=== PATIENT | female | born 1960 | race Caucasian/White ===

== ENCOUNTER → 2016-05-12 | Outpatient (REF) | payer OTHER | LOC: M SFHCWAGY 15:38 | PROVIDERS: ATTEND Nurse Practitioner Women's Health | DX: Z12.4 Encounter for screening for malignant neoplasm of cervix (principal) ==

== ENCOUNTER → 2016-05-12 | Outpatient (REF) ==
--- NOTE | 2016-05-12 16:50 | REPMRS ---
Patient History The patient states she had a clinical breast exam in 05/12 Patient is postmenopausal. Family history of breast cancer in paternal grandmother and breast cancer in 2 maternal cousins at age 50 or over. Digital Woman Screen Mammo: May 12, 2016 - Exam #: [id number] Bilateral CC and MLO view(s) were taken. Technologist: Gogo Jordan, Technologist Prior study comparison: February 24, 2014, digital woman screen mammo performed at [facility]. November 26, 2012, digital woman screen mammo performed at [facility]. June 07, 2011, digital woman screen mammo performed at [facility]. FINDINGS: The breast tissue is almost entirely fat. There has been no change in the appearance of the mammogram from the prior studies. There is no interval development of dominant mass, architectural distortion, or clustered microcalcification typical of malignancy. ASSESSMENT: BI-RADS/ACR category 1 mammogram. Negative. Recommendation Routine screening mammogram of both breasts in 1 year (for women over age 40). This mammogram was interpreted with the aid of an FDA-approved computer-aided dectection system. Electronically Signed By: Smith Noel MD 05/12/16 [id number]
== END ==
LOC: M WHC 15:03
PROVIDERS: ATTEND Nurse Practitioner Women's Health
DX: Z12.31 Encounter for screening mammogram for malignant neoplasm of breast (principal)

== ENCOUNTER → 2016-07-20 | Outpatient (REF) ==
--- NOTE | 2016-07-20 14:51 | ECGEPIP ---
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 No change from 02/16/14 Electronically Signed On 07-20-2016 14:51:29 EDT by Berto Stevens
--- NOTE | 2016-07-21 10:00 | REP ---
CHEST X-RAY: Two views. 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 Comparison study February 16, 2014. FINDINGS: The lungs are symmetrically aerated and clear. The pleural angles are sharp. Heart is not enlarged. The aorta is tortuous. There are degenerative changes in the thoracic spine. IMPRESSION: No active disease. Signed by Carrillo Noel MD 07/21/2016 11:20 A
== END ==
LOC: M EKG 14:26
PROVIDERS: ATTEND Nurse Practitioner Women's Health
DX: Z02.89 Encounter for other administrative examinations (principal)

== ENCOUNTER → 2016-07-20 | Outpatient (REF) ==
[2016-07-20 09:37] LABS: MEAN CORPUSCULAR HEMOGLOBIN 34.8 pg (27.0-33.0); MEAN CORPUSCULAR HGB CONC 33.9 g/dl (32.0-36.5); MEAN CORPUSCULAR VOLUME 102.7 fl (80.0-96.0); WHITE BLOOD COUNT 6.4 K/mm3 (4.0-10.0)
[2016-07-20 09:58] LABS: ANION GAP 6 MEQ/L (8-16); BLOOD UREA NITROGEN 19 MG/DL (7-18); CALCIUM LEVEL 9.4 MG/DL (8.5-10.1); CARBON DIOXIDE LEVEL 29 MEQ/L (21-32); CHLORIDE LEVEL 103 MEQ/L (98-107); CHOLESTEROL LEVEL 235 MG/DL (<200); CREATININE FOR GFR 0.95 MG/DL (0.55-1.02); GLOMERULAR FILTRATION RATE > 60.0 (>51); GLUCOSE, FASTING 79 MG/DL (70-105); POTASSIUM SERUM 4.6 MEQ/L (3.5-5.1); SODIUM LEVEL 138 MEQ/L (136-145); TRIGLYCERIDES LEVEL 176 MG/DL (<150)
[2016-07-21 11:04] LABS: HEPATITIS B SURFACE ANTIBODY NEGATIVE (POSITIVE)
== END ==
LOC: M LAB 08:32
PROVIDERS: ATTEND Nurse Practitioner Women's Health
DX: Z02.89 Encounter for other administrative examinations (principal)

== ENCOUNTER → 2016-11-03 | Outpatient (CLI) | payer OTHER ==
[2016-11-03 10:12] LABS: FOLATE > 24.0 NG/ML; VITAMIN B12 LEVEL 680 PG/ML
== END ==
LOC: M LAB 09:04
PROVIDERS: ATTEND Family Medicine
DX: D64.9 Anemia, unspecified (principal)

== ENCOUNTER → 2017-03-23 | Outpatient (CLI) | payer OTHER ==
[2017-03-23 11:29] LABS: ALBUMIN 4.2 GM/DL (3.2-5.2); ALBUMIN/GLOBULIN RATIO 1.05 (1.00-1.93); ALKALINE PHOSPHATASE 66 U/L (45-117); ALT/SGPT 36 U/L (12-78); ANION GAP 9 MEQ/L (8-16); AST/SGOT 31 U/L (7-37); BILIRUBIN,TOTAL 0.6 MG/DL (0.2-1.0); BLOOD UREA NITROGEN 18 MG/DL (7-18); CALCIUM LEVEL 9.2 MG/DL (8.5-10.1); CARBON DIOXIDE LEVEL 27 MEQ/L (21-32); CHLORIDE LEVEL 97 MEQ/L (98-107); CHOLESTEROL LEVEL 201 MG/DL (<200); CHOLESTEROL RISK RATIO 1.951 (<5); CREATININE FOR GFR 1.04 MG/DL (0.55-1.02); GLOMERULAR FILTRATION RATE 58.4 (>51); GLUCOSE, FASTING 111 MG/DL (70-100); HDL CHOLESTEROL 103 MG/DL (>40); LDL CHOLESTEROL 78.2 MG/DL (<100); NON-HDL-C 98 MG/DL; POTASSIUM SERUM 4.7 MEQ/L (3.5-5.1); SODIUM LEVEL 133 MEQ/L (136-145); TOTAL PROTEIN 8.2 GM/DL (6.4-8.2); TRIGLYCERIDES LEVEL 99 MG/DL (<150)
[2017-03-23 11:34] LABS: TOTAL 25(OH) VITAMIN D 41.5 NG/ML (30.0-100.0)
== END ==
LOC: M LAB 10:31
DX: E55.9 Vitamin D deficiency, unspecified (principal); I10 Essential (primary) hypertension; E78.2 Mixed hyperlipidemia
CPT/HCPCS: 80053

== ENCOUNTER → 2017-08-02 | Outpatient (REF) | payer OTHER ==
[2017-08-07 14:16] LABS: HPV HYBRID CAPTURE II Negative (Negative)
== END ==
LOC: M SFHCWAGY 15:48
DX: Z01.419 Encounter for gynecological examination (general) (routine) without abnormal findings (principal); Z11.51 Encounter for screening for human papillomavirus (HPV)

== ENCOUNTER → 2017-09-12 | Outpatient (REF) | payer OTHER ==
[2017-09-12 11:10] LABS: BASO # 0.1 10^3/uL (0.0-0.2); BASO % 0.8 % (0.0-1.0); EOS # 0.2 10^3/uL (0.0-0.50); EOS % 2.7 % (0.0-3.0); HEMATOCRIT 35.4 % (36.0-47.0); HEMOGLOBIN 11.8 g/dl (12.0-15.5); LYMPH # 2.4 10^3/uL (1.5-4.5); MEAN CORPUSCULAR HEMOGLOBIN 33.8 pg (27.0-33.0); MEAN CORPUSCULAR HGB CONC 33.3 g/dl (32.0-36.5); MEAN CORPUSCULAR VOLUME 101.4 fl (80.0-96.0); MONO # 0.8 10^3/uL (0.0-0.8); MONO % 8.9 % (0.0-5.0); NEUTROPHILS # 5.2 10^3/uL (1.8-7.7); NEUTROPHILS % 59.6 % (36.0-66.0); PLATELET COUNT, AUTOMATED 338 10^3/uL (150-450); RED BLOOD COUNT 3.49 10^6/uL (4.00-5.40); RED CELL DISTRIBUTION WIDTH 12.1 % (11.5-14.5); WHITE BLOOD COUNT 8.7 10^3/uL (4.0-10.0)
[2017-09-12 11:25] LABS: FERRITIN 588 NG/ML (8-252); IRON (FE) 146 UG/DL (50-170); PERCENT SATURATION 54.1 % (13.2-45.0); TOTAL IRON BINDING CAPACITY 270 UG/DL (250-450)
[2017-09-12 11:30] LABS: VITAMIN B12 LEVEL 459 PG/ML
[2017-09-12 11:31] LABS: FOLATE 9.5 NG/ML
== END ==
LOC: M LAB REF 10:58
DX: D64.9 Anemia, unspecified (principal)

== ENCOUNTER → 2018-01-15 | Outpatient (REF) ==
[2018-01-15 09:29] LABS: HEMATOCRIT 36.3 % (36.0-47.0); HEMOGLOBIN 12.4 g/dl (12.0-15.5); MEAN CORPUSCULAR HEMOGLOBIN 33.8 pg (27.0-33.0); MEAN CORPUSCULAR HGB CONC 34.2 g/dl (32.0-36.5); MEAN CORPUSCULAR VOLUME 98.9 fl (80.0-96.0); PLATELET COUNT, AUTOMATED 362 10^3/uL (150-450); RED BLOOD COUNT 3.67 10^6/uL (4.00-5.40); RED CELL DISTRIBUTION WIDTH 11.9 % (11.5-14.5); WHITE BLOOD COUNT 8.9 10^3/uL (4.0-10.0)
[2018-01-15 09:34] LABS: APPEARANCE, URINE CLEAR (CLEAR); BACTERIA, URINE AUTO 1+ (NEGATIVE); BILIRUBIN, URINE AUTO NEGATIVE (NEGATIVE); BLOOD, URINE BLOOD NEGATIVE (NEGATIVE); COLOR, URINE STRAW (YELLOW); GLUCOSE, URINE (UA) AUTO NEGATIVE (NEGATIVE); KETONE, URINE AUTO NEGATIVE (NEGATIVE); LEUKOCYTE ESTERASE, URINE AUTO NEGATIVE (NEGATIVE); MUCUS, URINE SMALL (NEGATIVE); NITRITE, URINE AUTO NEGATIVE (NEGATIVE); PROTEIN, URINE AUTO NEGATIVE (NEGATIVE); RBC, URINE AUTO 1 /HPF (0-3); SPECIFIC GRAVITY URINE AUTO 1.005 (1.002-1.035); SQUAMOUS EPITHELIAL CELL UR AU 1 /HPF (0-6); UROBILINOGEN, URINE AUTO 0.2 mg/dL (0.0-2.0); WBC, URINE AUTO 1 /HPF (0-3)
[2018-01-15 10:08] LABS: ANION GAP 12 MEQ/L (8-16); BLOOD UREA NITROGEN 18 MG/DL (7-18); CALCIUM LEVEL 9.4 MG/DL (8.5-10.1); CARBON DIOXIDE LEVEL 24 MEQ/L (21-32); CHLORIDE LEVEL 98 MEQ/L (98-107); CHOLESTEROL LEVEL 231 MG/DL (<200); CHOLESTEROL RISK RATIO 2.357 (<5); CREATININE FOR GFR 0.98 MG/DL (0.55-1.30); GLOMERULAR FILTRATION RATE > 60.0 (>51); GLUCOSE, FASTING 85 MG/DL (70-100); HDL CHOLESTEROL 98 MG/DL (>40); LDL CHOLESTEROL 110 MG/DL (<100); NON-HDL-C 133 MG/DL; POTASSIUM SERUM 4.6 MEQ/L (3.5-5.1); SODIUM LEVEL 134 MEQ/L (136-145); TRIGLYCERIDES LEVEL 114 MG/DL (<150)
== END ==
LOC: M LAB 08:21
DX: Z00.00 Encounter for general adult medical examination without abnormal findings (principal)

== ENCOUNTER → 2018-01-16 | Outpatient (REF) | LOC: M EKG 14:11 | DX: Z02.9 Encounter for administrative examinations, unspecified (principal) ==

== ENCOUNTER → 2018-08-30 | Outpatient (CLI) | payer OTHER ==
[2018-08-30 11:33] LABS: BASO # 0.1 10^3/uL (0.0-0.2); BASO % 0.9 % (0.0-1.0); EOS # 0.3 10^3/uL (0.0-0.50); EOS % 2.8 % (0.0-3.0); HEMATOCRIT 38.2 % (36.0-47.0); LYMPH # 2.4 10^3/uL (1.5-4.5); LYMPH % 26.6 % (24.0-44.0); MEAN CORPUSCULAR HEMOGLOBIN 33.9 pg (27.0-33.0); MEAN CORPUSCULAR VOLUME 99.7 fl (80.0-96.0); MONO # 0.8 10^3/uL (0.0-0.8); MONO % 8.9 % (0.0-5.0); NEUTROPHILS # 5.4 10^3/uL (1.8-7.7); NEUTROPHILS % 60.1 % (36.0-66.0); PLATELET COUNT, AUTOMATED 315 10^3/uL (150-450); RED BLOOD COUNT 3.83 10^6/uL (4.00-5.40); WHITE BLOOD COUNT 8.9 10^3/uL (4.0-10.0)
[2018-08-30 12:56] LABS: BILIRUBIN,TOTAL 0.5 MG/DL (0.2-1.0); CALCIUM LEVEL 10.3 MG/DL (8.5-10.1); CHOLESTEROL RISK RATIO 2.302 (<5); CREATININE FOR GFR 1.24 MG/DL (0.55-1.30); GLOMERULAR FILTRATION RATE 47.5 (>51); TOTAL 25(OH) VITAMIN D 97.3 NG/ML (30.0-100.0); TOTAL PROTEIN 7.8 GM/DL (6.4-8.2)
== END ==
LOC: M LAB 11:02
PROVIDERS: ATTEND Family Medicine
DX: E78.2 Mixed hyperlipidemia (principal); E55.9 Vitamin D deficiency, unspecified; D64.9 Anemia, unspecified

== ENCOUNTER → 2018-12-19 | Outpatient (CLI) | payer OTHER ==
[2018-12-19 14:10] LABS: BLOOD UREA NITROGEN 21 MG/DL (7-18); CALCIUM LEVEL 10.1 MG/DL (8.5-10.1); CARBON DIOXIDE LEVEL 30 MEQ/L (21-32); CHLORIDE LEVEL 104 MEQ/L (98-107); CREATININE FOR GFR 0.97 MG/DL (0.55-1.30); GLOMERULAR FILTRATION RATE > 60.0 (>51); GLUCOSE, FASTING 117 MG/DL (70-100); POTASSIUM SERUM 4.5 MEQ/L (3.5-5.1); SODIUM LEVEL 139 MEQ/L (136-145)
== END ==
LOC: M LAB 13:02
PROVIDERS: ATTEND Family Medicine
DX: N17.8 Other acute kidney failure (principal)

== ENCOUNTER → 2019-03-05 | Outpatient (CLI) | payer OTHER ==
[2019-03-05 08:31] LABS: BASO # 0.1 10^3/uL (0.0-0.2); BASO % 1.1 % (0.0-1.0); EOS # 0.2 10^3/uL (0.0-0.5); EOS % 2.7 % (0.0-3.0); HEMATOCRIT 40.8 % (36.0-47.0); HEMOGLOBIN 13.1 g/dl (12.0-15.5); MEAN CORPUSCULAR HEMOGLOBIN 33.4 pg (27.0-33.0); MEAN CORPUSCULAR HGB CONC 32.1 g/dl (32.0-36.5); MEAN CORPUSCULAR VOLUME 104.1 fl (80.0-96.0); MONO # 0.8 10^3/uL (0.0-0.8); MONO % 12.7 % (0.0-5.0); NEUTROPHILS # 3.5 10^3/uL (1.5-8.5); NEUTROPHILS % 52.9 % (36.0-66.0); PLATELET COUNT, AUTOMATED 273 10^3/uL (150-450); RED BLOOD COUNT 3.92 10^6/uL (4.00-5.40); WHITE BLOOD COUNT 6.6 10^3/uL (4.0-10.0)
[2019-03-05 09:00] LABS: BILIRUBIN,TOTAL 0.4 MG/DL (0.2-1.0); CALCIUM LEVEL 9.8 MG/DL (8.5-10.1); CHOLESTEROL RISK RATIO 2.129 (<5); CREATININE FOR GFR 1.1 MG/DL (0.55-1.30); GLOMERULAR FILTRATION RATE 54.3 (>51); POTASSIUM SERUM 4.8 MEQ/L (3.5-5.1); TOTAL PROTEIN 7.9 GM/DL (6.4-8.2)
[2019-03-05 09:15] LABS: TOTAL 25(OH) VITAMIN D 69.6 NG/ML (30.0-100.0)
[2019-03-05 10:14] LABS: HEMOGLOBIN A1c 5.7 %
== END ==
LOC: M SDC 08:00
PROVIDERS: ATTEND Family Medicine
DX: I10 Essential (primary) hypertension (principal); E78.2 Mixed hyperlipidemia; E55.9 Vitamin D deficiency, unspecified; G43.009 Migraine without aura, not intractable, without status migrainosus

== ENCOUNTER → 2019-09-12 | Outpatient (CLI) | payer OTHER ==
[2019-09-12 13:21] LABS: APPEARANCE, URINE HAZY (CLEAR); BACTERIA, URINE AUTO NEGATIVE (NEGATIVE); BILIRUBIN, URINE AUTO NEGATIVE (NEGATIVE); BLOOD, URINE BLOOD NEGATIVE (NEGATIVE); COLOR, URINE YELLOW (YELLOW); GLUCOSE, URINE (UA) AUTO NEGATIVE (NEGATIVE); KETONE, URINE AUTO TRACE mg/dL (NEGATIVE); LEUKOCYTE ESTERASE, URINE AUTO 1+ (NEGATIVE); MUCUS, URINE SMALL (NEGATIVE); NITRITE, URINE AUTO NEGATIVE (NEGATIVE); PROTEIN, URINE AUTO NEGATIVE (NEGATIVE); RBC, URINE AUTO 4 /HPF (0-3); SPECIFIC GRAVITY URINE AUTO 1.021 (1.002-1.035); SQUAMOUS EPITHELIAL CELL UR AU 9 /HPF (0-6); UROBILINOGEN, URINE AUTO 0.2 mg/dL (0.0-2.0); WBC, URINE AUTO 10 /HPF (0-3)
[2019-09-12 13:24] LABS: BASO # 0.1 10^3/uL (0.0-0.2); BASO % 0.7 % (0.0-1.0); EOS # 0.2 10^3/uL (0.0-0.5); HEMATOCRIT 39.8 % (36.0-47.0); HEMOGLOBIN 13.2 g/dl (12.0-15.5); LYMPH # 2.1 10^3/uL (1.5-5.0); LYMPH % 24.2 % (24.0-44.0); MEAN CORPUSCULAR HEMOGLOBIN 34.5 pg (27.0-33.0); MEAN CORPUSCULAR HGB CONC 33.2 g/dl (32.0-36.5); MEAN CORPUSCULAR VOLUME 103.9 fl (80.0-96.0); MONO # 0.8 10^3/uL (0.0-0.8); MONO % 8.9 % (0.0-5.0); NEUTROPHILS # 5.5 10^3/uL (1.5-8.5); NEUTROPHILS % 63.5 % (36.0-66.0); PLATELET COUNT, AUTOMATED 283 10^3/uL (150-450); RED BLOOD COUNT 3.83 10^6/uL (4.00-5.40); WHITE BLOOD COUNT 8.6 10^3/uL (4.0-10.0)
[2019-09-12 13:59] LABS: ALBUMIN 4.2 GM/DL (3.2-5.2); CALCIUM LEVEL 9.7 MG/DL (8.5-10.1); CHOLESTEROL RISK RATIO 2.372 (<5); CREATININE FOR GFR 1.12 MG/DL (0.55-1.30); GLOMERULAR FILTRATION RATE 53.2 (>51); POTASSIUM SERUM 4.1 MEQ/L (3.5-5.1); TOTAL PROTEIN 8.4 GM/DL (6.4-8.2)
[2019-09-12 14:02] LABS: HEMOGLOBIN A1c 5.5 %
--- NOTE | 2019-09-12 16:08 | REP ---
REASON: Annual physicals. COMPARISON: 01/16/2018 FINDINGS: The superior mediastinal structures are midline. The cardiac silhouette is unremarkable in size, shape, and position. The diaphragmatic surfaces of the lungs are regular, and the costophrenic angles are clear. The pulmonary fuentes are clear. The imaged osseous structures are intact. IMPRESSION: There is no acute cardiopulmonary disease. No change. Electronically Signed by Daniel Weeks DO 09/12/2019 05:02 P
--- NOTE | 2019-09-12 17:07 | ECGEPIP ---
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 Electronically Signed on 09-12-2019 17:07:07 EDT by Floyd Anderson
== END ==
LOC: M LAB 12:24
PROVIDERS: ATTEND Family Medicine
DX: N18.3 Chronic kidney disease, stage 3 (moderate) (principal); E78.2 Mixed hyperlipidemia

== ENCOUNTER → 2019-12-03 | Outpatient (CLI) | payer OTHER ==
[2019-12-03 17:11] LABS: BASO # 0.1 10^3/uL (0.0-0.2); BASO % 0.8 % (0.0-1.0); EOS # 0.1 10^3/uL (0.0-0.5); HEMATOCRIT 36.8 % (36.0-47.0); HEMOGLOBIN 12.3 g/dl (12.0-15.5); LYMPH # 1.8 10^3/uL (1.5-5.0); LYMPH % 19.7 % (24.0-44.0); MEAN CORPUSCULAR HEMOGLOBIN 34.2 pg (27.0-33.0); MEAN CORPUSCULAR HGB CONC 33.4 g/dl (32.0-36.5); MEAN CORPUSCULAR VOLUME 102.2 fl (80.0-96.0); MONO # 0.7 10^3/uL (0.0-0.8); MONO % 7.1 % (0.0-5.0); NEUTROPHILS # 6.6 10^3/uL (1.5-8.5); NEUTROPHILS % 70.9 % (36.0-66.0); PLATELET COUNT, AUTOMATED 363 10^3/uL (150-450); WHITE BLOOD COUNT 9.3 10^3/uL (4.0-10.0)
[2019-12-03 17:25] LABS: ALBUMIN 3.5 GM/DL (3.2-5.2); ALT/SGPT 54 U/L (12-78); BILIRUBIN,TOTAL 0.4 MG/DL (0.2-1.0); BLOOD UREA NITROGEN 15 MG/DL (7-18); CARBON DIOXIDE LEVEL 27 MEQ/L (21-32); CHLORIDE LEVEL 102 MEQ/L (98-107); GLOMERULAR FILTRATION RATE > 60.0 (>51); GLUCOSE, FASTING 92 MG/DL (70-100); POTASSIUM SERUM 3.6 MEQ/L (3.5-5.1); SODIUM LEVEL 138 MEQ/L (136-145); TOTAL PROTEIN 7.5 GM/DL (6.4-8.2)
== END ==
LOC: M WUC 14:13
PROVIDERS: ATTEND Physician Assistant
DX: R53.81 Other malaise (principal)

== ENCOUNTER → 2020-05-30 | Outpatient (CLI) | payer OTHER ==
[2020-05-30 12:04] LABS: BASO # 0.1 10^3/uL (0.0-0.2); BASO % 1.1 % (0.0-1.0); EOS # 0.1 10^3/uL (0.0-0.5); EOS % 1.5 % (0.0-3.0); HEMATOCRIT 35.4 % (36.0-47.0); HEMOGLOBIN 11.8 g/dl (12.0-15.5); LYMPH # 1.7 10^3/uL (1.5-5.0); LYMPH % 23.1 % (24.0-44.0); MEAN CORPUSCULAR HEMOGLOBIN 35.4 pg (27.0-33.0); MEAN CORPUSCULAR HGB CONC 33.3 g/dl (32.0-36.5); MEAN CORPUSCULAR VOLUME 106.3 fl (80.0-96.0); MONO # 0.7 10^3/uL (0.0-0.8); MONO % 9.4 % (2.0-8.0); NEUTROPHILS # 4.7 10^3/uL (1.5-8.5); NEUTROPHILS % 64.1 % (36.0-66.0); PLATELET COUNT, AUTOMATED 274 10^3/uL (150-450); RED BLOOD COUNT 3.33 10^6/uL (4.00-5.40); WHITE BLOOD COUNT 7.3 10^3/uL (4.0-10.0)
[2020-05-30 12:39] LABS: ALBUMIN 3.8 GM/DL (3.2-5.2); BILIRUBIN,TOTAL 0.5 MG/DL (0.2-1.0); CALCIUM LEVEL 9.3 MG/DL (8.5-10.1); CHOLESTEROL RISK RATIO 1.675 (<5); CREATININE FOR GFR 1.13 MG/DL (0.55-1.30); FREE T4 0.76 NG/DL (0.76-1.46); GLOMERULAR FILTRATION RATE 52.5 (>51); POTASSIUM SERUM 4.3 MEQ/L (3.5-5.1); THYROID STIMULATING HORMONE 2.87 uIU/ML (0.358-3.740); TOTAL PROTEIN 7.6 GM/DL (6.4-8.2)
== END ==
LOC: M LAB 11:38
PROVIDERS: ATTEND Physician Assistant
DX: I10 Essential (primary) hypertension (principal); I12.9 Hypertensive chronic kidney disease with stage 1 through stage 4 chronic kidney disease, or unspecified chronic kidney disease

== ENCOUNTER 2020-08-29 20:06 | Inpatient (IN) | payer OTHER ==
[~2020-08-29] VITALS: Ht 167.6 cm; Wt 79.6 kg
[2020-08-29] MEDS ORDERED: NORT10CA2 PO (20:25)
[2020-08-29] MEDS ORDERED: ROSU5TAB5 PO (20:25)
[2020-08-29] MEDS ORDERED: LANS30CA93 PO (20:25)
[2020-08-29] MEDS ORDERED: ERGO500029 PO (20:25)
[2020-08-29] MEDS ORDERED: ONDA4TAB6 PO (20:25)
[2020-08-29] MEDS ORDERED: IRBE150T7 PO (20:25)
[2020-08-29] MEDS ORDERED: ALPR0.25 PO (20:25)
[2020-08-29] MEDS ORDERED: TIZA2TA PO (20:25)
[2020-08-29 21:14] LABS: BASO # 0.1 10^3/uL (0.0-0.2); BASO % 0.5 % (0.0-1.0); EOS % 0.2 % (0.0-3.0); HEMATOCRIT 32.2 % (36.0-47.0); HEMOGLOBIN 11.1 g/dl (12.0-15.5); LYMPH # 0.9 10^3/uL (1.5-5.0); LYMPH % 8.6 % (24.0-44.0); MEAN CORPUSCULAR HEMOGLOBIN 35.6 pg (27.0-33.0); MEAN CORPUSCULAR HGB CONC 34.5 g/dl (32.0-36.5); MEAN CORPUSCULAR VOLUME 103.2 fl (80.0-96.0); MONO # 0.9 10^3/uL (0.0-0.8); NEUTROPHILS # 8.2 10^3/uL (1.5-8.5); NEUTROPHILS % 79.7 % (36.0-66.0); PLATELET COUNT, AUTOMATED 249 10^3/uL (150-450); RED BLOOD COUNT 3.12 10^6/uL (4.00-5.40); WHITE BLOOD COUNT 10.2 10^3/uL (4.0-10.0)
[2020-08-29] MEDS ORDERED: NS 1,000 ML IV ONE (22:55)
[2020-08-29] MEDS ORDERED: ONDANSETRON 4MG/2ML VIAL IV ONE (23:10)
[2020-08-30 01:30] LABS: ALBUMIN 3.4 GM/DL (3.2-5.2); ALT/SGPT 45 U/L (12-78); BILIRUBIN,DIRECT 0.2 MG/DL (0.0-0.2); BILIRUBIN,TOTAL 0.7 MG/DL (0.2-1.0); CK-MB VALUE MASS < 1.0 NG/ML (<3.6); CPK CREATINE PHOSPHOKINASE 60 U/L (26-192); LIPASE 926 U/L (73-393); MB/CK RELATIVE INDEX 1.67 (< OR =4); TOTAL PROTEIN 6.7 GM/DL (6.4-8.2); TROPONIN I < 0.02 NG/ML (< 0.10)
[2020-08-30] MEDS ORDERED: ISOVUE-370 76% 100ML VIAL As Ordered ONE (01:37)
--- NOTE | 2020-08-30 02:35 | REPVR ---
PROCEDURE INFORMATION: Exam: CTA Chest With Contrast Exam date and time: 08/30/2020 1:53 AM Age: 59 years old Clinical indication: Other: Dizzy/lightheaded TECHNIQUE: Imaging protocol: Computed tomographic angiography of the chest with contrast. 3D rendering (Not supervised by radiologist): MIP and/or 3D reconstructed images were created by the technologist. Radiation optimization: All CT scans at this facility use at least one of these dose optimization techniques: automated exposure control; mA and/or kV adjustment per patient size (includes targeted exams where dose is matched to clinical indication); or iterative reconstruction. Contrast material: ISOVUE 370; Contrast volume: 100 ml; Contrast route: INTRAVENOUS (IV); COMPARISON: CR Chest, 2 view PA, Lat 09/12/2019 1:21 PM FINDINGS: Pulmonary arteries: Normal. No pulmonary emboli. Aorta: Atherosclerotic disease of the thoracic aorta. Lungs: Atelectasis or scarring the left base. Mild emphysema. Pleural spaces: Unremarkable. No pneumothorax. No pleural effusion. Heart: Atherosclerotic disease of the coronary arteries. Lymph nodes: Unremarkable. No enlarged lymph nodes. Bones/joints: Multilevel degenerative disease thoracic spine. Old healed fracture deformities of several right posterior ribs. Soft tissues: Unremarkable. IMPRESSION: No acute findings. Electronically signed by: Sundeep Torres On 08/30/2020 02:34:49 AM
--- NOTE | 2020-08-30 02:45 | REPVR ---
PROCEDURE INFORMATION: Exam: CT Abdomen And Pelvis With Contrast Exam date and time: 08/30/2020 1:53 AM Age: 59 years old Clinical indication: Other: Dizzy/lightheaded TECHNIQUE: Imaging protocol: Computed tomography of the abdomen and pelvis with contrast. Radiation optimization: All CT scans at this facility use at least one of these dose optimization techniques: automated exposure control; mA and/or kV adjustment per patient size (includes targeted exams where dose is matched to clinical indication); or iterative reconstruction. Contrast material: ISOVUE 370; Contrast volume: 100 ml; Contrast route: INTRAVENOUS (IV); COMPARISON: CR Chest, 2 view PA, Lat 09/12/2019 1:21 PM FINDINGS: Liver: Hepatomegaly and steatosis. Gallbladder and bile ducts: Normal. No calcified stones. No ductal dilation. Pancreas: Normal. No ductal dilation. Spleen: Normal. No splenomegaly. Adrenal glands: Normal. No mass. Kidneys and ureters: Nonspecific bilateral perinephric fat stranding. Small exophytic complex right renal cyst. Stomach and bowel: Diverticulosis of colon. No evidence of acute diverticulitis. Appendix: No evidence of appendicitis. Intraperitoneal space: Unremarkable. No free air. No significant fluid collection. Vasculature: Atherosclerotic disease of the abdominal aorta. Lymph nodes: Unremarkable. No enlarged lymph nodes. Urinary bladder: Unremarkable as visualized. Reproductive: Unremarkable as visualized. Bones/joints: Multilevel degenerative disease and facet arthropathy of the lumbar spine. Mild levoscoliosis. Soft tissues: Unremarkable. IMPRESSION: Hepatomegaly and steatosis. Diverticulosis of the colon. No evidence of acute diverticulitis. No bowel obstruction. Normal appendix. COMMENTS: Consistent with the [place] [employer]'s Incidental Findings Committee white paper (J Am Pan Radiol 2018): Any incidental renal lesion less than 1 cm or classified as too small to characterize, or any incidental cystic renal lesion characterized as simple-appearing, is likely benign. No follow-up imaging is recommended for these lesions per consensus recommendations based on imaging criteria. Electronically signed by: Sundeep Torres On 08/30/2020 02:45:45 AM
[2020-08-30] MEDS ORDERED: NS 1,000 ML IV ONE (02:55)
[2020-08-30 03:01] LABS: RSV AMPLIFICATION NEGATIVE (NEGATIVE)
--- NOTE | 2020-08-30 03:37 | REPVR ---
PROCEDURE INFORMATION: Exam: US Duplex Right Lower Extremity Veins, Limited Exam date and time: 08/30/2020 3:28 AM Age: 59 years old Clinical indication: Pain; Leg, upper; Right; Additional info: Pain right leg TECHNIQUE: Imaging protocol: Real-time Duplex ultrasound of the Right Lower Extremity with 2-D jalloh scale, color Doppler flow and spectral waveform analysis with image documentation. Limited exam was focused on the right lower extremity veins. COMPARISON: CT ABD/PEL W/IV CONTRAST ONLY 08/30/2020 1:37 AM FINDINGS: Right deep veins: Unremarkable. The common femoral, femoral, proximal profunda femoral and popliteal veins are patent without thrombus. Normal Doppler waveforms. Normal compressibility and/or augmentation response. Right superficial veins: Unremarkable. Saphenofemoral junction is patent without thrombus. Soft tissues: Unremarkable. IMPRESSION: No evidence of deep vein thrombosis. Electronically signed by: Sundeep Torres On 08/30/2020 03:36:31 AM
[2020-08-30] MEDS ORDERED: NS 1,000 ML IV SCH (04:15)
[2020-08-30] MEDS ORDERED: KCL 40MEQ in NS 1000ML 1,000 ML IV SCH (04:45)
[2020-08-30] MEDS: MORPHINE 2 MG/ML 1ML VIAL (J2270) IV PRN ×3 (06:40→19:43)
[2020-08-30] MEDS: ONDANSETRON 4MG/2ML VIAL IV PRN ×3 (06:40→19:42)
[2020-08-30 07:02] LABS: BASO % 0.5 % (0.0-1.0); EOS # 0.1 10^3/uL (0.0-0.5); EOS % 1.2 % (0.0-3.0); HEMATOCRIT 28.7 % (36.0-47.0); HEMOGLOBIN 9.9 g/dl (12.0-15.5); LYMPH # 1.6 10^3/uL (1.5-5.0); LYMPH % 18.7 % (24.0-44.0); MEAN CORPUSCULAR HEMOGLOBIN 35.6 pg (27.0-33.0); MEAN CORPUSCULAR HGB CONC 34.5 g/dl (32.0-36.5); MEAN CORPUSCULAR VOLUME 103.2 fl (80.0-96.0); MONO % 12.2 % (2.0-8.0); NEUTROPHILS # 5.5 10^3/uL (1.5-8.5); NEUTROPHILS % 66.2 % (36.0-66.0); PLATELET COUNT, AUTOMATED 210 10^3/uL (150-450); RED BLOOD COUNT 2.78 10^6/uL (4.00-5.40); WHITE BLOOD COUNT 8.3 10^3/uL (4.0-10.0)
[2020-08-30 07:28] LABS: ALBUMIN 3.1 GM/DL (3.2-5.2); ALT/SGPT 39 U/L (12-78); AMYLASE 61 U/L (25-115); BILIRUBIN,TOTAL 0.6 MG/DL (0.2-1.0); BLOOD UREA NITROGEN 26 MG/DL (7-18); CALCIUM LEVEL 7.8 MG/DL (8.5-10.1); CARBON DIOXIDE LEVEL 24 MEQ/L (21-32); CHLORIDE LEVEL 103 MEQ/L (98-107); CREATININE FOR GFR 0.85 MG/DL (0.55-1.30); GLOMERULAR FILTRATION RATE > 60.0 (>51); GLUCOSE, FASTING 71 MG/DL (70-100); IRON (FE) 92 UG/DL (50-170); LIPASE 741 U/L (73-393); PERCENT SATURATION 40.2 % (13.2-45.0); RHEUMATOID FACTOR QUANT < 10.0 IU/ML (<15.0); SODIUM LEVEL 139 MEQ/L (136-145); TOTAL IRON BINDING CAPACITY 229 UG/DL (250-450); TOTAL PROTEIN 6.1 GM/DL (6.4-8.2)
[2020-08-30 08:00] VITALS: BP 153/90
[2020-08-30] MEDS: PANTOPRAZOLE 40MG VIAL (C9113 PER 1) IV SCH (08:57)
--- NOTE | 2020-08-30 09:21 | HPE ---
HISTORY AND PHYSICAL DATE OF ADMISSION: 08/29/2020 CHIEF COMPLAINT: Weakness and lightheadedness. HISTORY OF PRESENT ILLNESS: This is a 59-year-old female who says that she has been out in the heat for three days. She has had nausea and vomiting. She continued to become more lightheaded and weak where she could even stand up. She came to the emergency room. On arrival, her temp was 97.9. Pulse was 98. Respirations were 20. Blood pressure was 154/80. Pulse oximetry was 98% on room air. Laboratory studies were drawn. White count was 10.2, hemoglobin 11.1, hematocrit of 32.2. MCV was 103.2. Platelets were 249. D-dimer was 1634.34. AST was 53. ALT was 45. Troponin was less than 0.02. Lipase was noted to be 926. Glucose was 87. Sodium was 138. Potassium was low at 3.2. Chloride was 96. Total CO2 was 23. BUN was elevated at 34. Creatinine was 1.1. Testing for COVID was negative. Radiology studies: Angiography CTA was done of the chest. No acute findings, no pulmonary edema. Vascular ultrasound of the legs was done, no evidence of deep vein thrombosis of the right leg. CT of the abdomen and pelvis was done with contrast. Impression was hepatomegaly and steatosis, diverticulosis of the colon. No evidence of acute diverticulitis. No bowel obstruction. Normal appendix. The patient received normal saline IV fluid bolus in the emergency room. She was given Zofran IV for nausea. Assessment was done and the patient will be admitted observation status for pancreatitis to the medical floor. She will be kept NPO and IV fluids. PRIMARY CARE PROVIDER: Briana Porras DO ALLERGIES: TETRACYCLINES, AZITHROMYCIN BASE. SOCIAL HISTORY: She is . She does not smoke cigarettes. She occasionally drinks alcohol. She does not use recreational drugs. FAMILY HISTORY: Reviewed and was noncontributory. PAST MEDICAL HISTORY: 1. Hypertension. 2. Hypercholesterolemia. 3. Migraines. 4. GERD. 5. Anxiety. 6. Vitamin D deficiency. 7. She has had continuous pain since February in her right hip. She has been unable to work. 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 PAST SURGICAL HISTORY: 1. Left hip replacement. 2. Right knee replacement. 3. x1. 4. She has had upper and lower scopes. HOME MEDICATIONS: 1. Alprazolam 0.25 mg p.o. daily p.r.n. anxiety. 2. Vitamin D 50,000 units p.o. q.2 weeks. 3. Irbesartan 150 mg p.o. daily. 4. Nortriptyline 100 mg p.o. daily. 5. Zofran 4 mg p.o. q.4 hours p.r.n. nausea and vomiting. 6. Rosuvastatin 12 mg p.o. daily. 7. Lansoprazole 30 mg p.o. daily. 8. Tizanidine 2 mg p.o. q.8 hours p.r.n. for muscle spasms. REVIEW OF SYSTEMS: No complaint of headaches. She does have a history of migraines, none currently. No blurred or double vision. No fever, no chills though she has felt warm and cold at times. No tinnitus, no hoarseness or difficulty swallowing. She has been lightheaded. She has felt weakness. Breasts: No masses. Cardiovascular: No complaints of chest pain, shortness of breath, palpitations or edema. Respiratory: No chronic cough. No sputum production. No hemoptysis, no orthopnea, no wheeze. GI: She has had nausea and vomiting. Denies diarrhea, hematochezia, melena, rectal bleeding or abdominal pain. She has just some tenderness. : No hematuria, dysuria, frequency. Musculoskeletal: No joint redness or swelling. She has had a complaint of right hip pain. Endocrine: No polyuria, polydipsia, polyphagia. Hematological: No easy bleeding or bruising. Neurological: She has a history of migraines. No paralysis. No history of seizures. Psychological: She has a history of anxiety, no depression or suicidal ideations. PHYSICAL EXAMINATION: GENERAL: 59-year-old female, height 66 inches, weight 79.6 kilograms. VITAL SIGNS: Blood pressure 127/85, pulse 100, respirations 18. The patient is alert and oriented x3. HEENT: Pupils equal and reactive to light. Tongue and gums are pink. Buccal mucosa is slightly dry. Tongue is midline. NECK: Supple without lymphadenopathy, no thyromegaly, no goiter. Carotids 2+ without bruit. CHEST: Clear to auscultation. No wheeze or retraction. HEART: Regular. ABDOMEN: Soft with mild generalized tenderness. No rebound or guarding. No masses, pusations or bruits. No organomegaly. Bowel sounds were positive. AND RECTAL: Not done. EXTREMITIES: No clubbing, cyanosis or edema. Peripheral pulses equal and palpable bilaterally. SKIN: Warm and dry. IMPRESSION AND PLAN: The patient will be admitted observation status to the hospitalist service. 1. Pancreatitis. We will give IV fluids 150 mL an hour. Monitor I&O. Keep NPO. Recheck lipase in the a.m. Protonix IV. 2. History of hypertension. Currently clinically stable. will monitor. 3. History of GERD. will currently give Protonix IV. 4. History of migraines. Currently clinically stable. 5. History of hypercholesterolemia.When taking by mouth. will resume rosuvastatin. 6. Vitamin D deficiency. When taking by mouth. will resume vitamin D supplement. 7. Right hip pain since February. Continued followup as an outpatient. She has an appointment with [facility] orthopedic group in [place]. 8. DVT prophylaxis. TEDs. ERWIN
--- NOTE | 2020-08-30 10:38 | IPNPDOC ---
Subjective Date Seen The patient was seen on 08/30/20. Subjective Chief Complaint/HPI Mrs. Cuadra is a 59 year old female with hypertension and chronic hip pain who had nausea, poor oral intake, and lightheadedness, and found to have pancreatitis. This morning, she denies abdominal pain, but still has nausea. She still does not have an appetite. She does have mild abdominal tenderness. Continue IVF and NPO Objective Physical Examination General Exam: Positive: Alert, Cooperative Eye Exam: Negative: Sclera icteric ENT Exam: Positive: Atraumatic Neck Exam: Positive: Supple Chest Exam: Positive: Clear to auscultation; Negative: Rales, Rhonchi, Wheezing Heart Exam: Positive: Rate Normal, Regular Rhythm Abdomen Exam: Positive: Normal bowel sounds, Soft, Tenderness Extremity Exam: Negative: Edema Neuro Exam: Positive: Normal Speech Psych Exam: Positive: Mental status NL, Mood NL Assessment /Plan Assessment Mrs. Cuadra is a 59 year old female here with pancreatitis. Unclear etiology. There is no signs of gallstones, and patient occasionally drinks alcohol. Will check a lipid panel. At this time, continue NPO and give IVF. No appetite at this time. Plan/VTE VTE Prophylaxis Ordered?: Yes Plan 1. Acute pancreatitis -Anorexia with nausea -Continue IVF and NPO -Pain control with IV morphine -Monitor for improvement of appetite 2. Hypertension -Blood pressure acceptable -Hold Irbesartan as NPO 3. GERD -Continue IV protonix 4. Migraines -No active migraines -Monitor 5. Hyperlipidemia -Hold rosuvastatin as NPO 6. DVT/ppx -TEDs Disposition: Pending improvement in appetite VS, I&O, 24H, Fishbone Vital Signs/I&O Vital Signs Date Time Temp Pulse Resp B/P (MAP) Pulse Ox O2 Delivery O2 Flow Rate FiO2 08/30/20 08:00 97.9 70 18 153/90 (111) 93 Room Air I&O- Last 24 Hours up to 6 AM 08/30/20 06:00 Intake Total 2000 ml Balance 2000 ml Laboratory Data 24H LABS Laboratory Tests 2 08/29/20 21:03: Immature Granulocyte % (Auto) 2.0, Neutrophils (%) (Auto) 79.7H, Lymphocytes (%) (Auto) 8.6L, Monocytes (%) (Auto) 9.0H, Eosinophils (%) (Auto) 0.2, Basophils (%) (Auto) 0.5, Neutrophils # (Auto) 8.2, Lymphocytes # (Auto) 0.9L, Monocytes # (Auto) 0.9H, Eosinophils # (Auto) 0.0, Basophils # (Auto) 0.1, Nucleated Red Blood Cells % (auto) 0.0 08/29/20 21:07: POC Glucose (Misc Panel) 87, POC Sodium (Misc Panel) 138, POC Potassium (Misc Panel) 3.2L, POC Chloride (Misc Panel) 96L, POC Total CO2 (Misc Panel) 23.0, POC Blood Urea Nitrogen (Misc Panel 34H, POC Ionized Calcium (Misc Panel) 4.4L, POC Creatinine (Misc Panel) 1.1, POC Hematocrit (Misc Panel) 35.0L 08/30/20 00:44: D-Dimer, Quantitative 1634.34H, Total Bilirubin 0.7, Direct Bilirubin 0.2, Aspartate Amino Transf (AST/SGOT) 53H, Alanine Aminotransferase (ALT/SGPT) 45, Alkaline Phosphatase 56, Total Creatine Kinase 60, Creatine Kinase MB < 1.0, Creatine Kinase MB Relative Index 1.67, Troponin I < 0.02, Total Protein 6.7, Albumin 3.4, Albumin/Globulin Ratio 1.0L, Lipase 926H 08/30/20 02:18: Coronavirus (COVID-19)(PCR) NEGATIVE, Influenza Type A (RT-PCR) NEGATIVE, Influenza Type B (RT-PCR) NEGATIVE, Respiratory Syncytial Virus (PCR) NEGATIVE 08/30/20 06:49: Immature Granulocyte % (Auto) 1.2, Neutrophils (%) (Auto) 66.2H, Lymphocytes (%) (Auto) 18.7L, Monocytes (%) (Auto) 12.2H, Eosinophils (%) (Auto) 1.2, Basophils (%) (Auto) 0.5, Neutrophils # (Auto) 5.5, Lymphocytes # (Auto) 1.6, Monocytes # (Auto) 1.0H, Eosinophils # (Auto) 0.1, Basophils # (Auto) 0.0, Nucleated Red Blood Cells % (auto) 0.0, D-Dimer, Quantitative 1203.11H, Anion Gap 12, Glomerular Filtration Rate > 60.0, Calcium Level 7.8L, Iron Level 92, Total Iron Binding Capacity 229L, Transferrin % Saturation 40.2, Total Bilirubin 0.6, Aspartate Amino Transf (AST/SGOT) 45H, Alanine Aminotransferase (ALT/SGPT) 39, Alkaline Phosphatase 49, Total Protein 6.1L, Albumin 3.1L, Albumin/Globulin Ratio 1.0L, Amylase Level 61, Lipase 741H, Rheumatoid Factor < 10.0 CBC/BMP Laboratory Tests 08/29/20 21:03 08/30/20 06:49 ROCIO LOPEZ DO Aug 30, 2020 10:38
[2020-08-30 11:33] LABS: VITAMIN B12 LEVEL 404 PG/ML (247-911)
[2020-08-30] MEDS: NS 1,000 ML IV SCH ×2 (12:17→18:21)
[2020-08-30 14:00] VITALS: BP 135/86
[2020-08-30 17:02] LABS: BLOOD UREA NITROGEN 22 MG/DL (7-18); CALCIUM LEVEL 7.8 MG/DL (8.5-10.1); CARBON DIOXIDE LEVEL 24 MEQ/L (21-32); CHLORIDE LEVEL 107 MEQ/L (98-107); CREATININE FOR GFR 0.81 MG/DL (0.55-1.30); GLOMERULAR FILTRATION RATE > 60.0 (>51); GLUCOSE, FASTING 76 MG/DL (70-100); SODIUM LEVEL 140 MEQ/L (136-145)
--- NOTE | 2020-08-30 18:53 | ECGEPIP ---
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
[2020-08-30 22:00] VITALS: BP 140/87
[2020-08-30] MEDS: METOCLOPRAMIDE INJ 10MG/2ML VIAL (J2765 PER 1) IV PRN (22:01)
[2020-08-31] MEDS: MORPHINE 2 MG/ML 1ML VIAL (J2270) IV PRN ×5 (00:32→18:41)
[2020-08-31] MEDS: NS 1,000 ML IV SCH ×4 (01:13→21:23)
[2020-08-31 02:33] VITALS: BP 138/74
[2020-08-31] MEDS: ONDANSETRON 4MG/2ML VIAL IV PRN ×2 (02:39→13:48)
[2020-08-31] MEDS: METOCLOPRAMIDE INJ 10MG/2ML VIAL (J2765 PER 1) IV PRN (04:32)
[2020-08-31 06:30] VITALS: BP 132/69
[2020-08-31 06:34] LABS: BASO # 0.1 10^3/uL (0.0-0.2); BASO % 0.7 % (0.0-1.0); EOS # 0.1 10^3/uL (0.0-0.5); EOS % 1.1 % (0.0-3.0); HEMATOCRIT 29.8 % (36.0-47.0); HEMOGLOBIN 9.7 g/dl (12.0-15.5); LYMPH # 1.2 10^3/uL (1.5-5.0); LYMPH % 13.1 % (24.0-44.0); MEAN CORPUSCULAR HGB CONC 32.6 g/dl (32.0-36.5); MEAN CORPUSCULAR VOLUME 107.6 fl (80.0-96.0); MONO % 10.5 % (2.0-8.0); NEUTROPHILS # 6.7 10^3/uL (1.5-8.5); NEUTROPHILS % 72.3 % (36.0-66.0); PLATELET COUNT, AUTOMATED 229 10^3/uL (150-450); RED BLOOD COUNT 2.77 10^6/uL (4.00-5.40); WHITE BLOOD COUNT 9.2 10^3/uL (4.0-10.0)
[2020-08-31 06:59] LABS: ALT/SGPT 48 U/L (12-78); BILIRUBIN,TOTAL 0.6 MG/DL (0.2-1.0); BLOOD UREA NITROGEN 17 MG/DL (7-18); CALCIUM LEVEL 7.5 MG/DL (8.5-10.1); CARBON DIOXIDE LEVEL 22 MEQ/L (21-32); CHLORIDE LEVEL 108 MEQ/L (98-107); CHOLESTEROL LEVEL 160 MG/DL (<200); CHOLESTEROL RISK RATIO 1.839 (<5); CREATININE FOR GFR 0.75 MG/DL (0.55-1.30); GLOMERULAR FILTRATION RATE > 60.0 (>51); GLUCOSE, FASTING 66 MG/DL (70-100); HDL CHOLESTEROL 87 MG/DL (>40); LDL CHOLESTEROL 55 MG/DL (<100); LIPASE 818 U/L (73-393); NON-HDL-C 73 MG/DL; POTASSIUM SERUM 2.8 MEQ/L (3.5-5.1); SODIUM LEVEL 141 MEQ/L (136-145); TOTAL PROTEIN 6.5 GM/DL (6.4-8.2); TRIGLYCERIDES LEVEL 88 MG/DL (<150)
[2020-08-31] MEDS ORDERED: POTASSIUM CHLORIDE 10 MEQ SR TABLET PO ONE (07:00)
[2020-08-31] MEDS ORDERED: KCL 10MEQ/100ML SWI (KRUN) 10 MEQ in IV 1 EA IV ONE (07:00)
[2020-08-31] MEDS ORDERED: POTASSIUM CHLORIDE INJ 20 MEQ in NS 1,000 ML IV SCH (07:20)
[2020-08-31] MEDS ORDERED: POTASSIUM CHLORIDE 10% LIQ 20 MEQ/15 ML UDC PO ONE (07:20)
[2020-08-31] MEDS: KCL 10MEQ/100ML SWI (KRUN) 10 MEQ in IV 1 EA IV SCH ×4 (08:18→12:10)
[2020-08-31] MEDS: PANTOPRAZOLE 40MG VIAL (C9113 PER 1) IV SCH (08:19)
[2020-08-31 10:06] LABS: MAGNESIUM LEVEL 0.5 MG/DL (1.8-2.4)
[2020-08-31] MEDS: MAG SULF 1GM/100ML (MAG RUN) 1 GM in IV 1 EA IV SCH ×4 (10:56→13:48)
--- NOTE | 2020-08-31 12:05 | IPNPDOC ---
Subjective Date Seen The patient was seen on 08/31/20. Subjective Chief Complaint/HPI Mrs. Cuadra is a 59 year old female with hypertension and chronic hip pain who had nausea, poor oral intake, and lightheadedness, and found to have pancreatitis. This morning, she has worsening nausea. Her low potassium and magnesium will be supplemented Objective Physical Examination General Exam: Positive: Alert, Cooperative Eye Exam: Negative: Sclera icteric ENT Exam: Positive: Atraumatic Neck Exam: Positive: Supple Chest Exam: Positive: Clear to auscultation; Negative: Rales, Rhonchi, Wheezing Heart Exam: Positive: Rate Normal, Regular Rhythm Abdomen Exam: Positive: Normal bowel sounds, Soft, Tenderness Extremity Exam: Negative: Edema Neuro Exam: Positive: Normal Speech Psych Exam: Positive: Mental status NL, Mood NL Assessment /Plan Assessment Mrs. Cuadra is a 59 year old female here with pancreatitis. Unclear etiology. There is no signs of gallstones, and patient occasionally drinks alcohol. Will check a lipid panel. At this time, continue NPO and give IVF. No appetite at this time. Plan/VTE VTE Prophylaxis Ordered?: Yes Plan 1. Acute pancreatitis -Anorexia with nausea -Continue IVF and NPO -Pain control with IV morphine -Monitor for improvement of appetite 2. Hypertension -Blood pressure acceptable -Hold Irbesartan as NPO 3. GERD -Continue IV protonix 4. Migraines -No active migraines -Monitor 5. Hyperlipidemia -Hold rosuvastatin as NPO 6. Low potassium and magnesium -Will be supplemented and rechecked 7. DVT/ppx -TEDs Disposition: Pending improvement in appetite VS, I&O, 24H, Fishbone Vital Signs/I&O Vital Signs Date Time Temp Pulse Resp B/P (MAP) Pulse Ox O2 Delivery O2 Flow Rate FiO2 08/31/20 08:19 18 08/31/20 06:30 97.9 68 132/69 (90) 98 Room Air I&O- Last 24 Hours up to 6 AM 08/31/20 06:00 Intake Total 2596 ml Output Total 2550 ml Balance 46 ml Laboratory Data 24H LABS Laboratory Tests 2 08/30/20 16:25: Anion Gap 9, Glomerular Filtration Rate > 60.0, Calcium Level 7.8L 08/31/20 05:54: Anion Gap 11, Glomerular Filtration Rate > 60.0, Calcium Level 7.5L, Immature Granulocyte % (Auto) 2.3, Neutrophils (%) (Auto) 72.3H, Lymphocytes (%) (Auto) 13.1L, Monocytes (%) (Auto) 10.5H, Eosinophils (%) (Auto) 1.1, Basophils (%) (Auto) 0.7, Neutrophils # (Auto) 6.7, Lymphocytes # (Auto) 1.2L, Monocytes # (Auto) 1.0H, Eosinophils # (Auto) 0.1, Basophils # (Auto) 0.1, Nucleated Red Blood Cells % (auto) 0.0, Magnesium Level 0.5*L, Total Bilirubin 0.6, Aspartate Amino Transf (AST/SGOT) 58H, Alanine Aminotransferase (ALT/SGPT) 48, Alkaline Phosphatase 54, Total Protein 6.5, Albumin 3.0L, Albumin/Globulin Ratio 0.9L, Triglycerides Level 88, Total Cholesterol 160, LDL Cholesterol 55, Non-HDL Cholesterol (LDL + VLDL) 73, Total HDL Cholesterol 87, Cholesterol/HDL Ratio 1.839, Lipase 818H CBC/BMP Laboratory Tests 08/30/20 16:25 08/31/20 05:54 ROCIO LOPEZ DO Aug 31, 2020 12:05
[2020-08-31 14:00] VITALS: BP 121/75
[2020-08-31 16:42] LABS: BLOOD UREA NITROGEN 14 MG/DL (7-18); CALCIUM LEVEL 7.6 MG/DL (8.5-10.1); CARBON DIOXIDE LEVEL 20 MEQ/L (21-32); CHLORIDE LEVEL 107 MEQ/L (98-107); CREATININE FOR GFR 0.65 MG/DL (0.55-1.30); GLOMERULAR FILTRATION RATE > 60.0 (>51); GLUCOSE, FASTING 88 MG/DL (70-100); POTASSIUM SERUM 4.1 MEQ/L (3.5-5.1); SODIUM LEVEL 139 MEQ/L (136-145)
[2020-08-31 20:31] LABS: MAGNESIUM LEVEL 1.9 MG/DL (1.8-2.4)
[2020-08-31] MEDS ORDERED: ALPRAZolam 0.25 MG TAB PO PRN (21:15)
[2020-08-31] MEDS: tiZANidine 4 MG TAB PO PRN (21:23)
[2020-08-31 22:00] VITALS: BP 137/90
[2020-09-01] MEDS: MORPHINE 2 MG/ML 1ML VIAL (J2270) IV PRN ×4 (00:06→18:02)
[2020-09-01 06:21] LABS: BASO # 0.1 10^3/uL (0.0-0.2); BASO % 0.5 % (0.0-1.0); EOS # 0.1 10^3/uL (0.0-0.5); HEMATOCRIT 29.6 % (36.0-47.0); HEMOGLOBIN 9.6 g/dl (12.0-15.5); LYMPH # 1.2 10^3/uL (1.5-5.0); MEAN CORPUSCULAR HEMOGLOBIN 35.4 pg (27.0-33.0); MEAN CORPUSCULAR HGB CONC 32.4 g/dl (32.0-36.5); MEAN CORPUSCULAR VOLUME 109.2 fl (80.0-96.0); MONO # 1.1 10^3/uL (0.0-0.8); MONO % 9.8 % (2.0-8.0); NEUTROPHILS # 8.5 10^3/uL (1.5-8.5); NEUTROPHILS % 75.9 % (36.0-66.0); PLATELET COUNT, AUTOMATED 213 10^3/uL (150-450); RED BLOOD COUNT 2.71 10^6/uL (4.00-5.40); WHITE BLOOD COUNT 11.1 10^3/uL (4.0-10.0)
[2020-09-01 06:30] VITALS: BP 136/88
[2020-09-01] MEDS: NS 1,000 ML IV SCH ×3 (06:33→18:01)
[2020-09-01 06:49] LABS: ALBUMIN 2.5 GM/DL (3.2-5.2); ALT/SGPT 54 U/L (12-78); BILIRUBIN,TOTAL 0.6 MG/DL (0.2-1.0); BLOOD UREA NITROGEN 10 MG/DL (7-18); CALCIUM LEVEL 7.3 MG/DL (8.5-10.1); CARBON DIOXIDE LEVEL 20 MEQ/L (21-32); CHLORIDE LEVEL 109 MEQ/L (98-107); CREATININE FOR GFR 0.61 MG/DL (0.55-1.30); GLOMERULAR FILTRATION RATE > 60.0 (>51); GLUCOSE, FASTING 64 MG/DL (70-100); LIPASE 409 U/L (73-393); POTASSIUM SERUM 3.3 MEQ/L (3.5-5.1); SODIUM LEVEL 142 MEQ/L (136-145); TOTAL PROTEIN 6.4 GM/DL (6.4-8.2)
[2020-09-01] MEDS ORDERED: POTASSIUM CHLORIDE 10% LIQ 20 MEQ/15 ML UDC PO ONE (07:20)
[2020-09-01] MEDS ORDERED: POTASSIUM CHLORIDE 10 MEQ SR TABLET PO ONE (08:00)
[2020-09-01] MEDS: PANTOPRAZOLE 40MG VIAL (C9113 PER 1) IV SCH (08:25)
[2020-09-01] MEDS: tiZANidine 4 MG TAB PO PRN (08:25)
[2020-09-01 08:28] LABS: MAGNESIUM LEVEL 1.3 MG/DL (1.8-2.4)
[2020-09-01] MEDS ORDERED: MAG SULF 1GM/100ML (MAG RUN) 1 GM in IV 1 EA IV ONE (09:00)
[2020-09-01 10:00] VITALS: BP 115/78
[2020-09-01] MEDS: ONDANSETRON 4MG/2ML VIAL IV PRN ×2 (12:31→18:02)
--- NOTE | 2020-09-01 12:57 | IPNPDOC ---
Text Note Date of Service The patient was seen on 09/01/20. NOTE Subjective: Patient is a 59-year-old female with chronic hip pain who presents with nausea and poor oral intake who was found to have pancreatitis. Patient states that this morning her nausea has improved. Patient denies any abdominal pain. Patient did have some low potassium and magnesium which was supplemented again today. Patient was complaining of some left leg pain saying that he felt stiff and she was having some difficulty moving it. Patient said she had soreness in her thigh. Review of systems: General: Patient denies fevers HEENT: Patient denies headaches Cardiovascular: Patient denies chest pain Respiratory: Patient denies shortness of breath, cough GI: Patient denies abdominal pain, nausea, vomiting, diarrhea : Patient denies increased frequency or pain with urination Extremities: Patient reported pain in her hips bilaterally. Neurological: Patient denies numbness or tingling in legs Physical exam: Vitals: See below General: Alert and oriented female patientlaying in the bed when I walked in the room. Patient did not appear to be in any acute distress. HEENT: Normocephalic, atraumatic, moist mucous membranes. Neck: No lymphadenopathy or thyromegaly Cardiac: Regular rate and rhythm, no murmurs, normal S1, normal S2 Pulm: Clear to auscultation bilaterally. No wheezes, rhonchi, rales Abd: Nondistended, nontender to palpation, normal bowel sounds Ext: No edema bilateral lower extremities Musculoskeletal: Patient was able to move her leg bilaterally however, she did have some pain with flexion of the left hip and knee. There was no acute swelling, redness, or heat coming from the leg. Patient was able to move the leg with passive range of motion. Labs: See below Imaging: No new imaging has been performed since 08/30/2020. Assessment/plan: Patient is a 59-year-old female who presented to the hospital with pancreatitis who is slowly improving. 1. Acute pancreatitis, unknown etiology. In speaking with the patient today, she does say she does drink alcohol but does not report excessive alcohol use. Patient is saying that her nausea has improved and she does have an appetite. We will advance diet as tolerated starting with clear liquids. If this goes well, patient can be advanced to eating a low-fat diet either at lunch or dinner. Patient can have her IV fluids discontinued once her p.o. intake is able to maintain her hydration status. 2. Hypertension. We will continue to monitor the patient's blood pressure. Patient's blood pressure has been within normal limits and will continue to hold her blood pressure medications. 3. GERD. We will continue IV Protonix. 4. Migraines. No active migraines at this time we will continue to monitor. 5. Hyperlipidemia. Once the patient is able to take medications, we will continue with the rosuvastatin. 6. Hypokalemia and hypomagnesemia. These were still low today we will supplement again and recheck in the morning. DVT Prophylaxis: Teds Disposition: Pending improvement in the patient's diet. If the patient is able to tolerate p.o. intake and is doing well, patient may be able to be discharged in the next 24 to 48 hours. VS,Fishbone, I+O VS, Fishbone, I+O Laboratory Tests 08/31/20 16:00 09/01/20 05:57 Vital Signs Date Time Temp Pulse Resp B/P (MAP) Pulse Ox O2 Delivery O2 Flow Rate FiO2 09/01/20 12:32 18 09/01/20 10:00 97.5 77 115/78 (90) 97 Room Air I&O- Last 24 Hours up to 6 AM 09/01/20 06:00 Intake Total 2500 ml Output Total 1700 ml Balance 800 ml MAXI ANDERSON DO Sep 01, 2020 12:57
[2020-09-01 14:00] VITALS: BP 118/78
[2020-09-01 18:00] VITALS: BP 148/84
[2020-09-01 22:00] VITALS: BP 110/83
[2020-09-02] MEDS: tiZANidine 4 MG TAB PO PRN (00:57)
[2020-09-02] MEDS: ONDANSETRON 4MG/2ML VIAL IV PRN (00:57)
[2020-09-02] MEDS: MORPHINE 2 MG/ML 1ML VIAL (J2270) IV PRN (00:58)
[2020-09-02 02:00] VITALS: BP 131/98
[2020-09-02] MEDS ORDERED: LORazepam 2 MG TAB PO PRN (02:25)
[2020-09-02 02:30] VITALS: BP_SYST 130; BP_SYST 131; BP_DIAS 98
[2020-09-02] MEDS ORDERED: OXAZEPAM 10 MG CAP PO ONE (02:30)
[2020-09-02 05:30] VITALS: BP 138/90
[2020-09-02 05:58] VITALS: BP 138/90
[2020-09-02 07:18] LABS: HEMATOCRIT 27.4 % (36.0-47.0); HEMOGLOBIN 9.1 g/dl (12.0-15.5); MEAN CORPUSCULAR HEMOGLOBIN 35.8 pg (27.0-33.0); MEAN CORPUSCULAR HGB CONC 33.2 g/dl (32.0-36.5); MEAN CORPUSCULAR VOLUME 107.9 fl (80.0-96.0); PLATELET COUNT, AUTOMATED 219 10^3/uL (150-450); RED BLOOD COUNT 2.54 10^6/uL (4.00-5.40); WHITE BLOOD COUNT 12.4 10^3/uL (4.0-10.0)
[2020-09-02 07:46] LABS: ALBUMIN 2.3 GM/DL (3.2-5.2); ALT/SGPT 50 U/L (12-78); BILIRUBIN,TOTAL 0.5 MG/DL (0.2-1.0); BLOOD UREA NITROGEN 10 MG/DL (7-18); CALCIUM LEVEL 6.9 MG/DL (8.5-10.1); CARBON DIOXIDE LEVEL 23 MEQ/L (21-32); CHLORIDE LEVEL 107 MEQ/L (98-107); GLOMERULAR FILTRATION RATE > 60.0 (>51); GLUCOSE, FASTING 83 MG/DL (70-100); LIPASE 367 U/L (73-393); POTASSIUM SERUM 3.6 MEQ/L (3.5-5.1); SODIUM LEVEL 138 MEQ/L (136-145); TOTAL PROTEIN 5.4 GM/DL (6.4-8.2)
[2020-09-02 08:11] LABS: EOSINOPHILS 1 % (0-3); LYMPHOCYTES 16 % (16-44); METAMYELOCYTES 1 % (0-0); NEUTROPHILS 82 % (28-66); PLATELET ESTIMATE NORMAL (NORMAL)
[2020-09-02] MEDS: PANTOPRAZOLE 40MG VIAL (C9113 PER 1) IV SCH (08:47)
[2020-09-02] MEDS ORDERED: FOLIC ACID 1 MG TAB PO SCH (09:00)
[2020-09-02] MEDS ORDERED: MULTIVITAMINS/MINERALS THERAP 1 TAB PO SCH (09:00)
[2020-09-02] MEDS ORDERED: THIAMINE 100 MG TAB PO SCH (09:00)
--- NOTE | 2020-09-02 11:40 | DS.PDOC ---
Discharge Summary General Date of Admission Aug 31, 2020 at 09:39 Date of Discharge 09/02/2020 Primary Care Physician: SAJAN ORNELAS DO Attending Physician: MAXI ANDERSON DO Discharge Summary PROCEDURES PERFORMED DURING STAY: None. ADMITTING DIAGNOSES: 1. Pancreatitis 2. History of hypertension 3. History of GERD 4. History of migraines 5. History of hypercholesterolemia 6. Vitamin D deficiency 7. Right hip pain DISCHARGE DIAGNOSES: 1. Pancreatitis 2. Alcohol withdrawal 3. History of hypertension 4. History of GERD 5. History of migraines 6. History of hypercholesterolemia 7. Vitamin D deficiency 8. Right hip pain COMPLICATIONS/CHIEF COMPLAINT: Pancreatitis. HISTORY OF PRESENT ILLNESS: Patient is a 59-year-old female who presented to the hospital with nausea and vomiting. Patient said that she began to have nausea and vomiting over the past 3 days. Patient said she was very lightheaded and weak to the point where she could barely stand up. Patient came to the emergency room on 08/29/2020. Patient was diagnosed with pancreatitis based on the nausea vomiting and the elevated lipase at 926. Patient also had hypokalemia which was repleted. Patient was admitted to the hospital n.p.o. and was given IV fluids. HOSPITAL COURSE: Patient continued to have nausea and vomiting throughout the first few days of her hospital course. Patient did improve on 09/01/2020 and her diet was advanced. Patient began on a clear liquid diet and was quickly advanced to a full diet which patient did well on. Patient says that nausea, vo miting, and any abdominal pain had improved. Patient was still dealing with her right hip pain which has been chronic and she is getting worked up outpatient. Overnight on 09/01/2020 patient became confused and agitated. Patient did admit to drinking heavily. Patient initially admitted to drinking a few hard seltzers however, on further questioning this morning, 09/02/2020, patient did admit to dr giordanoing bottles of tequila. Patient states that she purchases 375 mL bottles of tequila which last for about 2 days. Patient says that she has been going through some difficult times at home which is caused her to drink more. Patient was given 20 mg of oxazepam and 2 mg of Ativan overnight which made the patient very somnolent. Patient did wake up and was agitated this morning. Patient did appear in withdrawal with tremors, sweating, and agitation. Patient was going to be given Serax 10 mg every 8 hours however, the patient became upset and wanted to go home. I strongly advised the patient that she stay in the hospital in order to get on a good regimen to help her through her alcohol withdrawals however, the patient decided to leave AGAINST MEDICAL ADVICE. Patient verbalized understanding that this decision leaves her at risk for worsening of her alcohol withdrawal symptoms which could include but is not limited to seizures and/or . Patient left the hospital on 09/02/2020 AGAINST MEDICAL ADVICE. Patient signed the AGAINST MEDICAL ADVICE form and left the hospital. DISCHARGE MEDICATIONS: Please see below. ALLERGIES: Please see below. PHYSICAL EXAMINATION ON DISCHARGE: VITAL SIGNS: Please see below. General: Alert and oriented female who was sitting on the bed when I walked in. Patient was calm initially but then became slightly agitated while speaking with her stating that I do not believe she is ready for discharge. Patient was tremulous and did appear sweaty. HEENT: Normocephalic, atraumatic, moist mucous membranes. Neck: No lymphadenopathy or thyromegaly Cardiac: Regular rate and rhythm, no murmurs, normal S1, normal S2 Pulm: Clear to auscultation bilaterally. No wheezes, rhonchi, rales Abd: Nondistended, nontender to palpation, normal bowel sounds Ext: No edema bilateral lower extremities LABORATORY DATA: Please see below. IMAGING: CT of the abdomen and pelvis with IV contrast performed on 08/30/2020 was reported to show hepatomegaly and steatosis, diverticulosis of the colon, no evidence of acute diverticulitis, no bowel obstruction and normal appendix. CT angiography of the chest performed on 08/30/2020 was reported to show no acute findings. Duplex ultrasound of the right lower extremity veins performed on 08/30/2020 was reported to show no evidence of deep vein thrombosis PROGNOSIS: Fair ACTIVITY: As tolerated. DIET: Low-fat diet DISCHARGE PLAN: Discharge home AGAINST MEDICAL ADVICE DISPOSITION: Against Medical Advice. DISCHARGE INSTRUCTIONS: 1. Follow-up with your primary care provider within 5 to 7 days of discharge. 2. Abstain from alcohol and return to the emergency department if symptoms return or worsen ITEMS TO FOLLOWUP ON ON OUTPATIENT: 1. Monitor the patient for alcohol withdrawal. DISCHARGE CONDITION: Unstable TIME SPENT ON DISCHARGE: Less than 30 minutes. Vital Signs/I&Os Vital Signs Date Time Temp Pulse Resp B/P (MAP) Pulse Ox O2 Delivery O2 Flow Rate FiO2 09/02/20 05:58 84 138/90 09/02/20 05:30 97.0 18 92 Room Air I&O- Last 24 Hours up to 6 AM 09/02/20 06:00 Intake Total 3340 ml Output Total 1050 ml Balance 2290 ml Laboratory Data Labs 24H Laboratory Tests 2 09/02/20 06:58: Neutrophils (%) (Auto) , Nucleated Red Blood Cells % (auto) 0.0, Neutrophils 82H, Lymphocytes (Manual) 16, Eosinophils (Manual) 1, Metamyelocytes 1H, Red Blood Cell Morphology NORMAL, Platelet Estimate NORMAL, Anion Gap 8, Glomerular Filtration Rate > 60.0, Calcium Level 6.9L, Total Bilirubin 0.5, Aspartate Amino Transf (AST/SGOT) 71H, Alanine Aminotransferase (ALT/SGPT) 50, Alkaline Phosphatase 103, Total Protein 5.4L, Albumin 2.3L, Albumin/Globulin Ratio 0.7L, Lipase 367 CBC/BMP Laboratory Tests 09/02/20 06:58 Discharge Medications Scheduled Ergocalciferol (Vitamin D2) (Vitamin D2) 50,000 Units Cap, 50,000 UNITS PO Q2WK, (Reported) sunday Irbesartan (Irbesartan) 150 Mg Tablet, 150 MG PO DAILY, (Reported) Lansoprazole (Lansoprazole) 30 Mg Capsule.dr, 30 MG PO DAILY, (Reported) Nortriptyline HCl (Nortriptyline HCl) 10 Mg Capsule, 20 MG PO DAILY, (Reported) Rosuvastatin Calcium (Rosuvastatin Calcium) 5 Mg Tablet, 5 MG PO DAILY, (Reported) Scheduled PRN Alprazolam (Alprazolam) 0.25 Mg Tablet, 0.25 MG PO DAILY PRN for ANXIETY, (Reported) Ondansetron (Ondansetron Odt) 4 Mg Tab.rapdis, 4 MG PO Q4H PRN for NAUSEA OR VOMITING, (Reported) Tizanidine HCl (Tizanidine HCl) 2 Mg Tablet, 2 MG PO Q8H PRN for muscle spasms, (Reported) Allergies Coded Allergies: Tetracyclines (Verified Allergy, Mild, RASH, 03/04/20) erythromycin base (Verified Allergy, Mild, RASH, 03/04/20) MAXI ANDERSON DO Sep 02, 2020 11:40
[2020-09-02] MEDS ORDERED: OXAZEPAM 10 MG CAP PO SCH ×2 (12:00→14:00)
== END 2020-09-02 11:10 | disposition left against medical advice (07) | DRG 439 ==
LOC: M ED 20:06 → M ED INP 20:07 → ENRESERV 08-30 07:06 → M MS5PR 08-30 07:49 → OBSVTOIN 08-31 09:39
PROVIDERS: ADMIT Internal Medicine; ATTEND Family Medicine
DX: K85.20 Alcohol induced acute pancreatitis without necrosis or infection (principal); F10.239 Alcohol dependence with withdrawal, unspecified; E78.5 Hyperlipidemia, unspecified; G43.909 Migraine, unspecified, not intractable, without status migrainosus; K21.9 Gastro-esophageal reflux disease without esophagitis; E55.9 Vitamin D deficiency, unspecified; Z79.899 Other long term (current) drug therapy; Z88.8 Allergy status to other drugs, medicaments and biological substances

== ENCOUNTER → 2020-09-06 | Outpatient (CLI) | payer OTHER ==
[~2020-09-06] MED LIST: ALPR0.25 PO; ERGO500029 PO; IRBE150T7 PO; LANS30CA93 PO; NORT10CA2 PO; ONDA4TAB6 PO; ROSU5TAB5 PO; TIZA2TA PO
[2020-09-06 11:33] LABS: BASO # 0.1 10^3/uL (0.0-0.2); BASO % 0.4 % (0.0-1.0); EOS # 0.1 10^3/uL (0.0-0.5); EOS % 0.5 % (0.0-3.0); HEMATOCRIT 31.6 % (36.0-47.0); HEMOGLOBIN 10.6 g/dl (12.0-15.5); LYMPH # 1.4 10^3/uL (1.5-5.0); LYMPH % 10.9 % (24.0-44.0); MEAN CORPUSCULAR HGB CONC 33.5 g/dl (32.0-36.5); MEAN CORPUSCULAR VOLUME 104.3 fl (80.0-96.0); MONO # 1.5 10^3/uL (0.0-0.8); MONO % 11.7 % (2.0-8.0); NEUTROPHILS # 9.5 10^3/uL (1.5-8.5); NEUTROPHILS % 74.8 % (36.0-66.0); PLATELET COUNT, AUTOMATED 359 10^3/uL (150-450); RED BLOOD COUNT 3.03 10^6/uL (4.00-5.40)
[2020-09-06 11:34] LABS: WHITE BLOOD COUNT 12.7 10^3/uL (4.0-10.0)
[2020-09-06 11:56] LABS: ALBUMIN 2.6 GM/DL (3.2-5.2); ALT/SGPT 35 U/L (12-78); BILIRUBIN,TOTAL 0.6 MG/DL (0.2-1.0); BLOOD UREA NITROGEN 10 MG/DL (7-18); CALCIUM LEVEL 9.2 MG/DL (8.5-10.1); CARBON DIOXIDE LEVEL 23 MEQ/L (21-32); CHLORIDE LEVEL 99 MEQ/L (98-107); CHOLESTEROL LEVEL 167 MG/DL (<200); CHOLESTEROL RISK RATIO 3.092 (<5); CREATININE FOR GFR 0.69 MG/DL (0.55-1.30); FERRITIN 1516 NG/ML (8-252); FOLATE 7.3 NG/ML; GLOMERULAR FILTRATION RATE > 60.0 (>51); GLUCOSE, FASTING 68 MG/DL (70-100); HDL CHOLESTEROL 54 MG/DL (>40); IRON (FE) 42 UG/DL (50-170); LDL CHOLESTEROL 87 MG/DL (<100); MAGNESIUM LEVEL 0.8 MG/DL (1.8-2.4); NON-HDL-C 113 MG/DL; PERCENT SATURATION 24.3 % (13.2-45.0); POTASSIUM SERUM 3.6 MEQ/L (3.5-5.1); SODIUM LEVEL 134 MEQ/L (136-145); TOTAL IRON BINDING CAPACITY 173 UG/DL (250-450); TOTAL PROTEIN 6.8 GM/DL (6.4-8.2); TRIGLYCERIDES LEVEL 129 MG/DL (<150); VITAMIN B12 LEVEL 1301 PG/ML
== END ==
LOC: M LAB 10:34
PROVIDERS: ATTEND Family Medicine
DX: I12.9 Hypertensive chronic kidney disease with stage 1 through stage 4 chronic kidney disease, or unspecified chronic kidney disease (principal); K85.20 Alcohol induced acute pancreatitis without necrosis or infection

== ENCOUNTER → 2020-10-01 | Outpatient (REF) | payer OTHER ==
[2020-10-01 13:12] LABS: BASO # 0.1 10^3/uL (0.0-0.2); BASO % 0.5 % (0.0-1.0); EOS # 0.1 10^3/uL (0.0-0.5); EOS % 0.5 % (0.0-3.0); HEMATOCRIT 37.1 % (36.0-47.0); HEMOGLOBIN 12.1 g/dl (12.0-15.5); LYMPH % 13.5 % (24.0-44.0); MEAN CORPUSCULAR HEMOGLOBIN 34.9 pg (27.0-33.0); MEAN CORPUSCULAR HGB CONC 32.6 g/dl (32.0-36.5); MEAN CORPUSCULAR VOLUME 106.9 fl (80.0-96.0); MONO % 7.1 % (2.0-8.0); NEUTROPHILS # 11.3 10^3/uL (1.5-8.5); NEUTROPHILS % 77.4 % (36.0-66.0); PLATELET COUNT, AUTOMATED 440 10^3/uL (150-450); RED BLOOD COUNT 3.47 10^6/uL (4.00-5.40); WHITE BLOOD COUNT 14.6 10^3/uL (4.0-10.0)
[2020-10-01 13:34] LABS: ALBUMIN 3.4 GM/DL (3.2-5.2); BILIRUBIN,TOTAL 0.9 MG/DL (0.2-1.0); CALCIUM LEVEL 10.8 MG/DL (8.8-10.2); CREATININE FOR GFR 1.02 MG/DL (0.55-1.30); GLOMERULAR FILTRATION RATE 58.8 (>45); MAGNESIUM LEVEL 1.3 MG/DL (1.8-2.4); POTASSIUM SERUM 4.5 MEQ/L (3.5-5.1); TOTAL PROTEIN 7.8 GM/DL (6.4-8.2)
== END ==
LOC: M WUC 12:18
PROVIDERS: ATTEND Physician Assistant
DX: K85.20 Alcohol induced acute pancreatitis without necrosis or infection (principal); E83.42 Hypomagnesemia

== ENCOUNTER → 2020-11-08 | Outpatient (CLI) | payer OTHER ==
[2020-11-08 15:18] LABS: BLOOD UREA NITROGEN 22 MG/DL (7-18); CALCIUM LEVEL 10.5 MG/DL (8.8-10.2); CARBON DIOXIDE LEVEL 29 MEQ/L (21-32); CHLORIDE LEVEL 102 MEQ/L (98-107); CREATININE FOR GFR 0.84 MG/DL (0.55-1.30); GLOMERULAR FILTRATION RATE > 60.0 (>45); GLUCOSE, FASTING 112 MG/DL (70-100); MAGNESIUM LEVEL 1.4 MG/DL (1.8-2.4); POTASSIUM SERUM 4.6 MEQ/L (3.5-5.1); SODIUM LEVEL 137 MEQ/L (136-145)
[2020-11-08 15:30] LABS: PTH INTACT 26.7 PG/ML (18.5-88.0)
[2020-11-08 19:03] LABS: HEMOGLOBIN A1c 5.1 %
== END ==
LOC: M LAB 14:20
PROVIDERS: ATTEND Physician Assistant
DX: R73.01 Impaired fasting glucose (principal)

== ENCOUNTER 2021-08-11 10:23 | Inpatient (IN) | payer OTHER, SELFPAY ==
[~2021-08-11] VITALS: Ht 167.6 cm; Wt 68.5 kg
[2021-08-11] VITALS (39 sets, daily range): BP systolic 73–137; BP diastolic 26–82
[~2021-08-11 10:23] MED LIST changes: +PANTOPRAZOLE 40MG VIAL IV SCH
[2021-08-11] MEDS ORDERED: MIDAZOLAM INJ 2MG/2ML VIAL (J2250 PER 1MG) IV STA (10:31)
[2021-08-11] MEDS ORDERED: MIDAZOLAM INJ 2MG/2ML VIAL (J2250 PER 1MG) As Ordered ONE (10:32)
[2021-08-11] MEDS ORDERED: NOREPINEPHRINE 4 MG/4 ML AMP As Ordered ONE (10:49)
[2021-08-11] MEDS ORDERED: NOREPINEPHRINE BITARTRATE 8 MG in D5W 492 ML IV SCH ×2 (11:00→12:10)
[2021-08-11 11:03] LABS: MEAN CORPUSCULAR HGB CONC 32.4 g/dl (32.0-36.5); PLATELET COUNT, AUTOMATED 231 10^3/uL (150-450); RED BLOOD COUNT 0.92 10^6/uL (4.00-5.40); WHITE BLOOD COUNT 10.3 10^3/uL (4.0-10.0)
[2021-08-11 11:07] LABS: HEMATOCRIT 10.5 % (36.0-47.0); HEMOGLOBIN 3.4 g/dl (12.0-15.5); INR 2.58; MEAN CORPUSCULAR VOLUME 114.1 fl (80.0-96.0)
[2021-08-11] MEDS ORDERED: MEROPENEM INJ 2 GM in NS 100 ML IV ONE (11:10)
[2021-08-11] MEDS ORDERED: fentaNYL CITRATE 1,000 MCG in NS 80 ML IV SCH ×2 (11:20→12:00)
[2021-08-11] MEDS ORDERED: DEXTROSE 50% 50 ML SYRINGE IV STA (11:29)
[2021-08-11] MEDS ORDERED: DEXTROSE 50% 50 ML SYRINGE As Ordered ONE (11:30)
[2021-08-11] MEDS ORDERED: MEROPENEM INJ 1 GM in IV 1 EA IV ONE ×2 (11:30→12:00)
[2021-08-11 11:33] LABS: ALBUMIN 1.5 GM/DL (3.2-5.2); BILIRUBIN,DIRECT 5.8 MG/DL (0.0-0.2); CALCIUM LEVEL 7.5 MG/DL (8.8-10.2); CREATININE FOR GFR 4.43 MG/DL (0.55-1.30); GLOMERULAR FILTRATION RATE 10.8 (>45); TOTAL PROTEIN 4.9 GM/DL (6.4-8.2)
[2021-08-11 11:34] LABS: ANISOCYTOSIS 1+; LYMPHOCYTES 22 % (16-44); MONOCYTES 4 % (0-5); NEUTROPHILS 73 % (28-66); PLATELET ESTIMATE NORMAL (NORMAL)
[2021-08-11 11:44] LABS: RSV AMPLIFICATION NEGATIVE (NEGATIVE)
[2021-08-11] MEDS ORDERED: VASOPRESSIN INJ 20 UNITS in NS 500 ML IV SCH (12:00)
[2021-08-11] MEDS ORDERED: HYDROCORTISONE 100 MG/2 ML VIAL (J1720 PER 1) As Ordered ONE (12:09)
[2021-08-11] MEDS ORDERED: D5W/0.45% SODIUM CHLORIDE 1,000 ML IV SCH (12:10)
[2021-08-11] MEDS ORDERED: VASOPRESSIN INJ 20 UNITS/ML VIAL As Ordered ONE (12:16)
[2021-08-11] MEDS ORDERED: GLUCAGON INJ 1MG VIAL SC PRN ×2 (12:20)
[2021-08-11] MEDS ORDERED: GLUCOSE 4GM CHEW TABLET PO PRN ×2 (12:20)
[2021-08-11] MEDS ORDERED: DEXTROSE 50% 50 ML SYRINGE IV PRN ×2 (12:20)
[2021-08-11] MEDS ORDERED: SODIUM BICARBONATE 8.4% INJ 50 ML SYRINGE As Ordered ONE ×2 (12:27→12:33)
[2021-08-11] MEDS: LR 1,000 ML IV SCH ×2 (12:40→13:46)
[2021-08-11] MEDS ORDERED: MAG-400T7 PO (12:44)
[2021-08-11] MEDS ORDERED: MECL-86 PO (12:44)
[2021-08-11] MEDS ORDERED: IRBE75TA4 PO (12:44)
[2021-08-11] MEDS ORDERED: HOME MED LIST COMPLETE! XX SCH (12:45)
[2021-08-11 13:15] LABS: ABG BASE EXCESS -12.3 (-2.0-2.0); ABG HCO3 12.4 MEQ/L (22.0-26.0); ABG O2 SATURATION 99.6 % (95.0-99.0); ABG PARTIAL PRESSURE CO2 24.4 mmHg (35.0-45.0); ABG PARTIAL PRESSURE O2 314.4 mmHg (75.0-100.0); ABG STANDARD HCO3 14.7 MEQ/L (22.0-26.0); ABG TOTAL CO2 13.2 MEQ/L (23.0-31.0); ABG pH (ARTERIAL) 7.324 UNITS (7.350-7.450)
[2021-08-11 13:42] LABS: HEMATOCRIT 22.7 % (36.0-47.0); MEAN CORPUSCULAR HEMOGLOBIN 32.2 pg (27.0-33.0); MEAN CORPUSCULAR VOLUME 97.4 fl (80.0-96.0); RED BLOOD COUNT 2.33 10^6/uL (4.00-5.40); WHITE BLOOD COUNT 7.5 10^3/uL (4.0-10.0)
[2021-08-11] MEDS: MIDAZOLAM 5MG/ML 1ML VIAL (J2250 PER 1MG) IV PRN ×5 (13:45→21:50)
[2021-08-11 14:00] LABS: INR 2.48; PROTHROMBIN TIME 27.2 SECONDS (12.7-14.5)
[2021-08-11 14:01] LABS: PARTIAL THROMBOPLASTIN TIME 42.8 SECONDS (25.9-37.0)
[2021-08-11 14:16] LABS: CK-MB VALUE MASS 1.2 NG/ML (<3.6); MB/CK RELATIVE INDEX 0.88 (< OR =4)
[2021-08-11 14:19] LABS: ALBUMIN 1.2 GM/DL (3.2-5.2); BILIRUBIN,DIRECT 5.5 MG/DL (0.0-0.2); BILIRUBIN,TOTAL 6.6 MG/DL (0.2-1.0); C REACTIVE PROTEIN QUANTITATIV 11.3 MG/DL (0.00-0.30); CALCIUM LEVEL 6.3 MG/DL (8.8-10.2); CREATININE FOR GFR 3.75 MG/DL (0.55-1.30); GLOMERULAR FILTRATION RATE 13.1 (>45); PHOSPHORUS LEVEL 7.2 MG/DL (2.5-4.9); POTASSIUM SERUM 3.7 MEQ/L (3.5-5.1); TOTAL PROTEIN 3.6 GM/DL (6.4-8.2)
[2021-08-11 14:43] LABS: HEMOGLOBIN 7.5 g/dl (12.0-15.5); PLATELET COUNT, AUTOMATED 135 10^3/uL (150-450)
[2021-08-11 14:47] LABS: EOSINOPHILS 1 % (0-3); LYMPHOCYTES 17 % (16-44); METAMYELOCYTES 1 % (0-0); MONOCYTES 2 % (0-5); MYELOCYTES 2 % (0-0); NEUTROPHILS 69 % (28-66)
[2021-08-11 14:48] LABS: GIANT PLATELETS 1+; PLATELET ESTIMATE DECREASED (NORMAL)
[2021-08-11 14:50] LABS: CRENATED RBC 1+; OVALOCYTES 1+
[2021-08-11 14:51] LABS: MICROCYTOSIS 1+; ROULEAUX 1+
[2021-08-11] MEDS: OCTREOTIDE ACETATE 100MCG/ML VIAL **IV ADMINISTRATION ONLY IV STA ×2 (15:07→15:11)
[2021-08-11] MEDS: NOREPINEPHRINE BITARTRATE 16 MG in D5W 484 ML IV SCH (15:24)
[2021-08-11] MEDS ORDERED: MIDAZOLAM INJ 2MG/2ML VIAL (J2250 PER 1MG) IV ONE (15:30)
[2021-08-11 15:46] LABS: INR 2.23; PROTHROMBIN TIME 25.1 SECONDS (12.7-14.5)
[2021-08-11 15:47] LABS: FIBRINOGEN 555 MG/DL (268-480); PARTIAL THROMBOPLASTIN TIME 42.2 SECONDS (25.9-37.0)
[2021-08-11] MEDS ORDERED: OCTREOTIDE ACETATE 1,200 MCG in NS 238.8 ML IV SCH (16:00)
[2021-08-11] MEDS ORDERED: D5W/0.9% SODIUM CHLORIDE 1,000 ML IV SCH (16:00)
[2021-08-11] MEDS: IPRATROPIUM 0.5MG/ALBUTEROL 2.5MG INH SOL UD 3ML (DUONEB) NEB SCH ×2 (16:18→19:46)
[2021-08-11 16:19] LABS: D-DIMER QUANT > 4000 ng/ml (<500)
[2021-08-11 16:54] LABS: ABG BASE EXCESS -8.7 (-2.0-2.0); ABG HCO3 13.5 MEQ/L (22.0-26.0); ABG PARTIAL PRESSURE CO2 20.6 mmHg (35.0-45.0); ABG PARTIAL PRESSURE O2 101.3 mmHg (75.0-100.0); ABG STANDARD HCO3 17.4 MEQ/L (22.0-26.0); ABG TOTAL CO2 14.1 MEQ/L (23.0-31.0); ABG pH (ARTERIAL) 7.434 UNITS (7.350-7.450)
[2021-08-11] MEDS: PANTOPRAZOLE 40MG VIAL IV SCH (16:54)
[2021-08-11 16:55] LABS: ABG O2 SATURATION 97.6 % (95.0-99.0)
[2021-08-11] MEDS: THIAMINE INJection 500 MG in NS 100 ML IV SCH (16:55)
[2021-08-11] MEDS ORDERED: FOLIC ACID 1 MG in NS 50 ML IV SCH (17:00)
[2021-08-11 17:26] LABS: IRON (FE) 127 UG/DL (50-170); PERCENT SATURATION 105.8 % (13.2-45.0); TOTAL IRON BINDING CAPACITY 120 UG/DL (250-450)
[2021-08-11 18:04] LABS: APPEARANCE, URINE HAZY (CLEAR); BACTERIA, URINE AUTO NEGATIVE (NEGATIVE); BILIRUBIN, URINE AUTO 1+ (NEGATIVE); BLOOD, URINE BLOOD 3+ (NEGATIVE); COLOR, URINE AMBER (YELLOW); GLUCOSE, URINE (UA) AUTO 3+ mg/dL (NEGATIVE); KETONE, URINE AUTO TRACE mg/dL (NEGATIVE); LEUKOCYTE ESTERASE, URINE AUTO NEGATIVE (NEGATIVE); MUCUS, URINE SMALL (NEGATIVE); NITRITE, URINE AUTO NEGATIVE (NEGATIVE); PROTEIN, URINE AUTO 2+ mg/dL (NEGATIVE); RBC, URINE AUTO 115 /HPF (0-3); SPECIFIC GRAVITY URINE AUTO 1.009 (1.002-1.035); SQUAMOUS EPITHELIAL CELL UR AU 6 /HPF (0-6); TRANSITIONAL EPITHELIAL AUTO 2 /HPF; WBC, URINE AUTO 49 /HPF (0-3)
[2021-08-11 18:11] LABS: HEPATITIS B SURFACE ANTIGEN NEGATIVE (NEGATIVE)
[2021-08-11 18:17] LABS: HEPATITIS B CORE ANTIBODY IGM NEGATIVE (NEGATIVE); HEPATITIS C VIRUS ABY INDEX 0.2 INDEX (<0.8)
[2021-08-11] MEDS ORDERED: LR 1,000 ML IV ONE (18:20)
[2021-08-11] MEDS ORDERED: CALCIUM GLUCONATE 2,000 MG in NS 100 ML IV ONE (19:45)
[2021-08-11 19:50] LABS: HEMATOCRIT 31.4 % (36.0-47.0); MEAN CORPUSCULAR HEMOGLOBIN 31.8 pg (27.0-33.0); MEAN CORPUSCULAR HGB CONC 35.7 g/dl (32.0-36.5); MEAN CORPUSCULAR VOLUME 89.2 fl (80.0-96.0); PLATELET COUNT, AUTOMATED 123 10^3/uL (150-450); RED BLOOD COUNT 3.52 10^6/uL (4.00-5.40); WHITE BLOOD COUNT 10.4 10^3/uL (4.0-10.0)
[2021-08-11] MEDS ORDERED: SODIUM BICARBONATE 150 MEQ in D5W 1,000 ML IV SCH (20:00)
[2021-08-11 20:01] LABS: CALCIUM LEVEL 6.2 MG/DL (8.8-10.2); CREATININE FOR GFR 3.56 MG/DL (0.55-1.30); GLOMERULAR FILTRATION RATE 13.9 (>45); MAGNESIUM LEVEL 0.6 MG/DL (1.8-2.4); PHOSPHORUS LEVEL 4.3 MG/DL (2.5-4.9); POTASSIUM SERUM 3.1 MEQ/L (3.5-5.1)
[2021-08-11 20:06] LABS: HEMOGLOBIN 11.2 g/dl (12.0-15.5)
[2021-08-11] MEDS ORDERED: MAG SULF 1GM/100ML (MAG RUN) 2 GM in IV 1 EA IV ONE (20:10)
[2021-08-11] MEDS ORDERED: CHLORHEXIDINE GLUCONATE 0.12 % 15ML UDC (PERIDEX ORAL RINSE) MT SCH (21:00)
[2021-08-11] MEDS: VASOPRESSIN INJ 20 UNITS in NS 499 ML IV SCH (21:03)
[2021-08-11] MEDS ORDERED: SODIUM CHLORIDE 0.9% INJ 10 ML SYR IV PRN (21:35)
[2021-08-11] MEDS: KCL 20MEQ IN 100ML SWI (KRUN) 20 MEQ in IV 1 EA IV SCH ×4 (22:03→23:19)
[2021-08-11] MEDS: HEPARIN SOD (PORCINE) 5000UNITS/ML 1ML VIAL/SYRINGE SC SCH (22:36)
[2021-08-11] MEDS ORDERED: NOREPINEPHRINE/DEXTROSE 8 MG in IV 1 EA IV SCH (23:00)
[2021-08-11 23:40] LABS: HEMATOCRIT 29.9 % (36.0-47.0); HEMOGLOBIN 10.8 g/dl (12.0-15.5)
[2021-08-12] VITALS (10 sets, daily range): BP systolic 49–117; BP diastolic 33–75
[2021-08-12] MEDS: KCL 20MEQ IN 100ML SWI (KRUN) 20 MEQ in IV 1 EA IV SCH ×2 (00:42)
[2021-08-12] MEDS: MIDAZOLAM 5MG/ML 1ML VIAL (J2250 PER 1MG) IV PRN ×2 (00:42→01:35)
[2021-08-12] MEDS ORDERED: REFRIGERATOR IV KEYS XX PRN (01:30)
[2021-08-12] MEDS ORDERED: MIDAZOLAM HCL 100 MG in D5W 80 ML IV SCH (01:30)
[2021-08-12] MEDS ORDERED: HYDROCORTISONE 100 MG/2 ML VIAL (J1720 PER 1) IV ONE (02:00)
[2021-08-12] MEDS ORDERED: NS 250 ML IV ONE (02:00)
[2021-08-12] MEDS ORDERED: NS 750 ML IV ONE (02:10)
[2021-08-12 02:13] LABS: HEMATOCRIT 21.6 % (36.0-47.0); MEAN CORPUSCULAR HEMOGLOBIN 31.9 pg (27.0-33.0); MEAN CORPUSCULAR HGB CONC 34.3 g/dl (32.0-36.5); MEAN CORPUSCULAR VOLUME 93.1 fl (80.0-96.0); RED BLOOD COUNT 2.32 10^6/uL (4.00-5.40); WHITE BLOOD COUNT 11.1 10^3/uL (4.0-10.0)
[2021-08-12] MEDS: THIAMINE INJection 500 MG in NS 100 ML IV SCH (02:13)
[2021-08-12 02:14] LABS: HEMOGLOBIN 7.4 g/dl (12.0-15.5); PLATELET COUNT, AUTOMATED 76 10^3/uL (150-450)
[2021-08-12 03:02] LABS: CALCIUM LEVEL 5.5 MG/DL (8.8-10.2); CREATININE FOR GFR 2.49 MG/DL (0.55-1.30); MAGNESIUM LEVEL 1.6 MG/DL (1.8-2.4); PHOSPHORUS LEVEL 4.1 MG/DL (2.5-4.9); POTASSIUM SERUM 4.4 MEQ/L (3.5-5.1)
[2021-08-12] MEDS: PANTOPRAZOLE 40MG VIAL IV SCH (03:17)
[2021-08-12] MEDS: HEPARIN SOD (PORCINE) 5000UNITS/ML 1ML VIAL/SYRINGE SC SCH (06:00)
[2021-08-12] MEDS: NOREPINEPHRINE BITARTRATE 16 MG in D5W 484 ML IV SCH (06:11)
[2021-08-12] MEDS: VASOPRESSIN INJ 20 UNITS in NS 499 ML IV SCH (06:26)
[2021-08-12] MEDS ORDERED: GLYCOPYRROLATE INJ 0.2 MG/ML 2 ML VIAL IV PRN (07:30)
[2021-08-12] MEDS: IPRATROPIUM 0.5MG/ALBUTEROL 2.5MG INH SOL UD 3ML (DUONEB) NEB SCH (08:00)
[2021-08-12] MEDS ORDERED: PENTOXIFYLLINE 400 MG TAB PO SCH (09:00)
[2021-08-12] MEDS ORDERED: MORPHINE SULF IN 0.9% NACL 100 MG in IV 1 EA IV SCH ×2 (09:00)
[2021-08-12] MEDS ORDERED: MEROPENEM INJ 1 GM in IV 1 EA IV SCH (11:00)
[2021-08-16 15:08] LABS: ANCA-ATYPICAL <1:20 titer (Neg:<1:20); ANTI SMITH(Sm) AB <20 Units (<20); ANTI-MITOCHONDRIAL ANTIBODY <20.0 Units (0.0-20.0); ANTINUCLEAR ANTIBODIES DIRECT Negative (Negative); CYTOPLASMIC NEUTROP AB ANCA-C <1:20 titer (Neg:<1:20); LIVER-KIDNEY MICROSOMAL ABY <20.1 Units (0.0-20.0); PERINUCLEAR AB ANCA-P <1:20 titer (Neg:<1:20)
== END 2021-08-12 09:20 | disposition expired | DRG 720 ==
LOC: M ED 10:23 → M ED INP 11:58 → ENRESERV 13:19 → M ICU 13:37
PROVIDERS: ADMIT Internal Medicine; ATTEND Internal Medicine
PROC: 0DB78ZX Excision of Stomach, Pylorus, Via Natural or Artificial Opening Endoscopic, Diagnostic (ICD-10-PCS; principal; 2021-08-11)
PROC: 5A1945Z Respiratory Ventilation, 24-96 Consecutive Hours (ICD-10-PCS; 2021-08-11)
DX: A41.2 Sepsis due to unspecified staphylococcus (principal); I12.9 Hypertensive chronic kidney disease with stage 1 through stage 4 chronic kidney disease, or unspecified chronic kidney disease; D63.1 Anemia in chronic kidney disease; N18.9 Chronic kidney disease, unspecified; E78.5 Hyperlipidemia, unspecified; Z96.651 Presence of right artificial knee joint; Z88.1 Allergy status to other antibiotic agents; Z20.822 Contact with and (suspected) exposure to COVID-19; J96.00 Acute respiratory failure, unspecified whether with hypoxia or hypercapnia; R65.21 Severe sepsis with septic shock; D62 Acute posthemorrhagic anemia; K92.2 Gastrointestinal hemorrhage, unspecified; N17.9 Acute kidney failure, unspecified; F10.231 Alcohol dependence with withdrawal delirium; K70.9 Alcoholic liver disease, unspecified; K29.70 Gastritis, unspecified, without bleeding; E87.2 Acidosis; I95.9 Hypotension, unspecified; E83.51 Hypocalcemia; K76.9 Liver disease, unspecified; R57.1 Hypovolemic shock; K29.80 Duodenitis without bleeding